=== PATIENT | male | born 1995 | race Caucasian/White ===

== ENCOUNTER 2016-10-13 20:51 | Inpatient (IN) | payer BC, OTHER ==
[~2016-10-13] VITALS: Ht 180.3 cm; Wt 61.2 kg
[~2016-10-13 20:51] MED LIST: DIPH50CA37 PO; Fluoxetine Hcl PO; Gabapentin PO; HYDR-3895 PO; MIRT15TA7 PO
--- NOTE | 2016-10-14 20:40 | NUR ---
Admission note Pt is a 21 yo male, A+Ox4, presenting to [facility] for ETOH/Benzo/Opiate/Methamphetamine/Marijuana dependence. Pt has NKA, is Full Code status, and on Regular diet. Pt is 5'11" in height and 135 LBS in weight. Pt has medical HX of Anxiety, Depression, ADHD, and Insomnia. Pt has family medical HX of Anemia from Mother. Pt has no Primary Care Provider. Pt has been drinking Alcohol for 5 years, has reached a level of 750ml Vodka/daily and last drink was 375ml on 10-14-16 @0300. Pt has been taking Xanax XR for 4 years, has reached a level of 8mg/daily, and last dose was 6mg on 10-13-16. Pt has been smoking Heroin for 2 years, has reached a level of $20-$40 worth/daily, and last dose was $20 worth on 10-11-16. Pt has been taking Adderall for 4 years, has reached a level of 60mg/daily, and last dose [id number] on 10-13-16. Pt has been snorting Methamphetamine for 4 years, has reached a level of 0.5gm/week, and last dose was of an "unknown" amount on 10-07-16. Pt has been smoking Marijuana for 6 years, has reached a level of 1gm/daily, and last dose was 1gm on 10-14-16 @0900. Pt states that he is taking home medications as follows: Fluoxetine 40mg QD, Adderall 30mg BID, Xanax XR 2mg BID, and Restoril 30mg QHS. Pt has HX of previous Detox/Rehab for 7 days @ [facility] and then 30 days @ [facility] in July 2016. this was the patients last time sober. Pt is a cigarette smoker for 5 years and has reached a rate of 20/daily. Pt is stable at this time with V/S WNL. No s/s of distress noted at this time. Respirations even and unlabored. Will continue to monitor.
[2016-10-14 20:45] VITALS: BP 128/74
[2016-10-14 21:08] LABS: *AMPHETAMINE, URINE NEGATIVE (NEGATIVE); *BARBITURATE, URINE NEGATIVE (NEGATIVE); *CANNABINOID, URINE POSITIVE (NEGATIVE); *COCCAINE, URINE NEGATIVE (NEGATIVE); *OPIATE, URINE NEGATIVE (NEGATIVE); *PHENCYCLIDINE SCREEN,URINE NEGATIVE (NEGATIVE)
[2016-10-15 00:11] VITALS: BP 117/54
[2016-10-15] MEDS ORDERED: IBUPROFEN 400 MG TABLET PO PRN (00:15)
[2016-10-15] MEDS ORDERED: THIAMINE HCL 200 MG/2 ML VIAL IM ONE (00:15)
[2016-10-15] MEDS ORDERED: LORAZEPAM 1 MG TABLET PO PRN ×2 (00:15)
[2016-10-15] MEDS ORDERED: MAG HYDROX/AL HYDROX/SIMETH 30 ML LIQUID UDC PO PRN (00:15)
[2016-10-15] MEDS ORDERED: ONDANSETRON ODT 4 MG TAB.RAPDIS SL PRN (00:15)
[2016-10-15] MEDS ORDERED: BUPRENORPHINE HCL 2 MG TAB.SUBL SL PRN (00:15)
[2016-10-15] MEDS ORDERED: LOPERAMIDE HCL 2 MG CAPSULE PO PRN ×2 (00:15)
[2016-10-15] MEDS ORDERED: MAGNESIUM HYDROXIDE 30 ML LIQUID UDC PO PRN (00:15)
[2016-10-15] MEDS ORDERED: DICYCLOMINE HCL 20 MG TABLET PO PRN (00:15)
[2016-10-15] MEDS ORDERED: LORAZEPAM 2 MG/1 ML VIAL IM PRN (00:15)
[2016-10-15] MEDS ORDERED: diphenhydrAMINE 50 MG CAPSULE PO PRN (00:15)
[2016-10-15] MEDS ORDERED: METHOCARBAMOL 750 MG TABLET ONE (00:40)
[2016-10-15] MEDS ORDERED: diphenhydrAMINE 50 MG CAPSULE ONE (00:40)
[2016-10-15] MEDS: METHOCARBAMOL 750 MG TABLET PO PRN ×4 (00:43→21:53)
--- NOTE | 2016-10-15 00:48 | NUR ---
PRN Robaxin and Benadryl Pt c/o general body pain and inability to sleep and requested for PRN Robaxin and Benadryl. Medications given and tolerated well. Will reassess within 1 HR. Will continue to monitor.
[2016-10-15] MEDS ORDERED: ALPR2TAB5 PO (01:30)
[2016-10-15] MEDS ORDERED: TEMA30CA5 PO (01:34)
--- NOTE | 2016-10-15 01:35 | NUR ---
PRN Robaxin and Benadryl Reassessment Medications effective. No s/s of ASE/distress noted at this time. Respirations even and unlabored. Will continue to monitor.
[2016-10-15 01:44] LABS: BASOPHILS # (AUTO) 0.1 K/uL (0.0-0.2); EOSINOPHILS # (AUTO) 0.1 K/uL (0.0-0.7); EOSINOPHILS % (AUTO) 1.7 % (0.0-7.0); HEMATOCRIT 42.6 % (35.0-45.0); HEMOGLOBIN 13.9 g/dL (11.5-15.5); LYMPHOCYTES # (AUTO) 2.5 K/uL (0.8-4.8); LYMPHOCYTES % (AUTO) 29.1 % (20.5-74.5); MEAN CORPUSCULAR HEMOGLOBIN 27.9 uug (27.0-31.0); MEAN CORPUSCULAR HGB CONC 33 g/dL (32.0-37.0); MEAN CORPUSCULAR VOLUME 85.2 fL (77.0-95.0); MONOCYTES # (AUTO) 0.9 K/uL (0.1-1.30); MONOCYTES % (AUTO) 10.2 % (0-11); PLATELET COUNT (AUTO) 314 K/uL (150-450); RED CELL DISTRIBUTION WIDTH 12.6 % (11.5-14.5); WHITE BLOOD COUNT (AUTO) 8.6 K/uL (4.5-14.5)
[2016-10-15 01:54] LABS: ETHANOL < 3 MG/DL (0-0)
[2016-10-15 02:05] LABS: ALANINE AMINOTRANSFERASE 34 U/L (16-63); ALBUMIN 3.8 g/dL (3.4-5.0); ALKALINE PHOSPHATASE 59 U/L (50-136); AMYLASE 48 U/L (25-115); ASPARTATE AMINOTRANSFERASE 19 U/L (15-37); BILIRUBIN,TOTAL 0.4 mg/dL (0.2-1.0); CALCIUM 8.8 mg/dL (8.5-10.1); CARBON DIOXIDE 31 mmol/L (21-32); CHLORIDE 102 mmol/L (98-107); GFR 95 mL/min (>60); GLUCOSE 103 mg/dL (74-106); LIPASE 179 U/L (73-393); MAGNESIUM 1.9 mg/dL (1.8-2.4); POTASSIUM 4.1 mmol/L (3.5-5.1); SODIUM SERUM 139 mmol/L (136-145); TOTAL PROTEIN, SERUM 6.8 g/dL (6.4-8.2); UREA NITROGEN, BLOOD 13 mg/dL (7-18)
[2016-10-15 02:06] LABS: THYROID STIMULATING HORMONE 2.008 mIU/mL (0.358-3.740)
[2016-10-15 02:10] LABS: HIV-1/2 ANTIBODY NON REACTIVE (NONREACTIVE)
[2016-10-15 02:11] LABS: HIV-1 p24 ANTIGEN NON REACTIVE (NONREACTIVE)
--- NOTE | 2016-10-15 04:14 | NUR ---
V/S, COWS, and CIWA Refused V/S, COWS, and CIWA Refused. No s/s of distress noted at this time. Respirations even and unlabored. Will continue to monitor.
--- NOTE | 2016-10-15 06:46 | NUR ---
End of shift note Pt is a 21 yo male, A+Ox4, presenting to [facility] for ETOH/Benzo/Opiate/Methamphetamine/Marijuana dependence. Pt has NKA, is Full Code status, and on Regular diet. Pt is 5'11" in height and 135 LBS in weight. Pt has medical HX of Anxiety, Depression, ADHD, and Insomnia. Pt has family medical HX of Anemia from Mother. Pt has no Primary Care Provider. Pt has been drinking Alcohol for 5 years, has reached a level of 750ml Vodka/daily and last drink was 375ml on 10-14-16 @0300. Pt has been taking Xanax XR for 4 years, has reached a level of 8mg/daily, and last dose was 6mg on 10-13-16. Pt has been smoking Heroin for 2 years, has reached a level of $20-$40 worth/daily, and last dose was $20 worth on 10-11-16. Pt has been taking Adderall for 4 years, has reached a level of 60mg/daily, and last dose [id number] on 10-13-16. Pt has been snorting Methamphetamine for 4 years, has reached a level of 0.5gm/week, and last dose was of an "unknown" amount on 10-07-16. Pt has been smoking Marijuana for 6 years, has reached a level of 1gm/daily, and last dose was 1gm on 10-14-16 @0900. Pt states that he is taking home medications as follows: Fluoxetine 40mg QD, Adderall 30mg BID, Xanax XR 2mg BID, and Restoril 30mg QHS. Pt has HX of previous Detox/Rehab for 7 days @ [facility] and then 30 days @ [facility] in July 2016. this was the patients last time sober. Pt is a cigarette smoker for 5 years and has reached a rate of 20/daily. Pt was given PRN Robaxin and Benadryl @0048. Pt slept for a total of 6 HRS. Last COWS: 5 and Last CIWA: 3 @0000. No s/s of distress noted at this time. Respirations even and unlabored. Will endorse to day shift nurse.
--- NOTE | 2016-10-15 07:00 | NUR ---
Start of Shift Notes: Received patient in his room. Awake, alert, verbally responsive x 4. Appears anxious. Redirectable. Able to make his needs known. Respirations even and unlabored. No SOB noted. Skin warm and dry to touch. Abdomen soft and non-distended with (+) BS in all 4 quadrants noted. No complains of N/V/D or constipation noted. No complains of abdominal discomfort. Bladder non-distended. No complains of dysuria noted. Voids independently. Ambulatory ad shannon with steady gait. Patient is a 21 year old male admitted for opiate/BZO/ETOH/methamphetamine dependence who was placed on PRNs only at this time. MD to re-assess taper need in AM. Has past medical hx of anxiety, depression, ADHD, insomnia, and seizure withdrawal. NKA. FULL CODE. Regular diet. On fall and seizure precautions. Educated patient on his current plan of care for the day and his medication regimen. Encouraged oral fluid intake and encouraged group participation to learn new skills to prevent relapse.
[2016-10-15 08:00] VITALS: BP 125/80
[2016-10-15] MEDS: MULTIVITAMINS,THERAPEUTIC TABLET PO SCH (08:50)
[2016-10-15] MEDS: FOLIC ACID 1 MG TABLET PO SCH (08:50)
[2016-10-15] MEDS: THIAMINE HCL 100 MG TABLET PO SCH (08:51)
[2016-10-15] MEDS: HYDROXYZINE PAMOATE 25 MG CAPSULE PO PRN (08:51)
--- NOTE | 2016-10-15 08:51 | NUR ---
PRN Robaxin, Ativan 1 mg, Vistaril 50 mg PO given: COWS 10, CIWA 7 - patient presented with muscle aches, anxiety, agitation, sweats. Medicated patient with Robaxin 750 mg PO, Ativan 1 mg per CIWA score of 7 and Vistaril 50 mg PO for anxiety. Will monitor for effectiveness.
[2016-10-15] MEDS ORDERED: TUBERCULIN,PURIF.PROT.DERIV. 5 TU/0.1 ML TEST ID ONE (09:00)
[2016-10-15] MEDS ORDERED: LORAZEPAM 1 MG TABLET PO ONE (09:45)
--- NOTE | 2016-10-15 09:51 | NUR ---
Re-assessment: Per patient, PRN Vistaril, Robaxin, and Ativan 1 mg PO were effective in reducing anxiety, muscle aches. CIWA 6.
[2016-10-15] MEDS ORDERED: GABAPENTIN PO SCH (10:00)
[2016-10-15] MEDS: GABAPENTIN 400 MG CAPSULE PO SCH ×4 (10:06→20:22)
--- NOTE | 2016-10-15 10:06 | NUR ---
PRN Motrin 400 mg Po given: Patient noted to complain of headache 10/26. Medicated patient with Motrin 400 mg PO as ordered. Will monitor for effectiveness.
--- NOTE | 2016-10-15 11:06 | NUR ---
Re-assessment: Per patient, PRN Motrin was effective in relieving headache.
[2016-10-15] MEDS: BUPRENORPHINE HCL 2 MG TAB.SUBL SL SCH ×2 (11:53→20:23)
[2016-10-15 12:00] VITALS: BP 134/76
[2016-10-15] MEDS: LORAZEPAM 1 MG TABLET PO SCH ×3 (12:00→20:22)
[2016-10-15 16:00] VITALS: BP 115/79
--- NOTE | 2016-10-15 17:26 | NUR ---
Robaxin 750 mg PO given: Patient noted with complain of 6/10 muscle aches and pain. Non-pharmacological interventions were ineffective. Medicated patient with Robaxin 750 mg PO as ordered. Will monitor for effectiveness.
--- NOTE | 2016-10-15 18:26 | NUR ---
Re-assessment: Per patient, PRN Robaxin was effective in reducing muscle aches and pains.
--- NOTE | 2016-10-15 18:38 | NUR ---
End of Shift Notes: Patient is a 21 year old male admitted on 10/14/2016 for ETOH/BZO/opiate/methamphetamine dependence who was placed on a 5-day Ativan and 3-day Subutex taper as ordered. No adverse reactions noted. 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 NKA. FULL CODE. Regular diet. On fall and seizure precautions. VS monitored closely q 4 hours. No significant abnormalities noted. Initial COWS 10, CIWA 7. Patient presented with chills, hot flashes, restlessness, anxiey, agitation, muslce aches, and agitation. Patient was medicated with Robaxin 750, Ativan 1 mg and Vistaril at 0851 with help after 1 hour. Motrin 400 mg PO was given at 1006 for headache with help after 1 hour. Last COWS 10 /CIWA 5.Unable to participate in group and therapy sessions due to his withdrawal symptoms. All needs met and attended. Safety precautions in place. Will contnue to monitor closely.
--- NOTE | 2016-10-15 19:14 | NUR ---
Start of shift note Received report from day shift nurse. Pt is a 21 yo male, A+Ox4, presenting to [facility] for ETOH/Benzo/Opiate/Methamphetamine/Marijuana dependence. Pt has NKA, is Full Code status, and on Regular diet. Pt has medical HX of Anxiety, Depression, ADHD, and Insomnia. Pt is on Fall and Seizure precautions. Pt is on 5 day Ativan and 3 day Subutex tapers, tolerated well. No s/s of distress noted at this time. Respirations even and unlabored. Will continue to monitor.
[2016-10-15 20:30] VITALS: BP 119/62
[2016-10-15] MEDS: MIRTAZAPINE 15 MG TABLET PO SCH (21:53)
--- NOTE | 2016-10-15 21:53 | NUR ---
PRN Robaxin Pt c/o general body pain and requested for PRN Robaxin. Medication given and tolerated well. Will reassess within 1 HR. Will continue to monitor.
[2016-10-15] MEDS ORDERED: MIRTAZAPINE 15 MG TABLET ONE (21:59)
--- NOTE | 2016-10-15 22:50 | NUR ---
PRN Robaxin Reassessment Medication effective. No s/s of ASE/distress noted at this time. Respirations even and unlabored. Will continue to monitor.
--- NOTE | 2016-10-16 00:13 | NUR ---
V/S, COWS, and CIWA Refused V/S, COWS, and CIWA Refused. No s/s of distress noted at this time. Respirations even and unlabored. Will continue to monitor.
--- NOTE | 2016-10-16 04:14 | NUR ---
V/S, COWS, and CIWA Refused V/S, COWS, and CIWA Refused. No s/s of distress noted at this time. Respirations even and unlabored. Will continue to monitor.
[2016-10-16] MEDS: HYDROXYZINE PAMOATE 25 MG CAPSULE PO PRN ×2 (05:27→19:03)
--- NOTE | 2016-10-16 05:30 | NUR ---
PRN Vistaril Pt c/o anxiety and requested for PRN Vistaril. Medication given and tolerated well. Will reassess within 1 HR. Will continue to monitor.
--- NOTE | 2016-10-16 06:20 | NUR ---
PRN Vistaril Reassessment Medication effective. No s/s of ASE/distress noted at this time. Respirations even and unlabored. Will continue to monitor.
--- NOTE | 2016-10-16 06:52 | NUR ---
End of shift note Pt is a 21 yo male, A+Ox4, presenting to [facility] for ETOH/Benzo/Opiate/Methamphetamine/Marijuana dependence. Pt has NKA, is Full Code status, and on Regular diet. Pt has medical HX of Anxiety, Depression, ADHD, and Insomnia. Pt is on Fall and Seizure precautions. Pt is on 5 day Ativan and 3 day Subutex tapers, tolerated well. Pt was given PRN Robaxin @4263 and PRN Vistaril @0530. Pt slept for a total of 8 HRS. Last COWS: 7 and Last CIWA: 4 @1999. No s/s of distress noted at this time. Respirations even and unlabored. Will endorse to day shift nurse.
--- NOTE | 2016-10-16 07:30 | NUR ---
START OF SHIFT Received client in his room. Awake, alert, verbally responsive x 4. Appears anxious, relaxation breathing techniques instituted with returned demonstration. Respirations even and unlabored. Skin warm and dry to touch. Abdomen soft and non-distended with (+) BS in all 4 quadrants noted. He denies N/V/D. Ambulatory ad shannon with steady gait. Client is a 21 year old male admitted for opiate/BZO/ETOH/methamphetamine withdrawal. He is on % day Ativan taper and 3 day Subutex, tolerating well. He reports past medical hx of SAVANNA, panic attacks, ADHD, insomnia, and induced-seizure withdrawal. NKA. FULL CODE. Regular diet. On fall and seizure precautions. Educated client on his current plan of care for the day and his medication regimen. Encouraged oral fluid intake and encouraged group participation to learn new skills to prevent relapse. Bed in lowest position and locked, side rails x 2 up/padded. Call light within reach.
[2016-10-16] MEDS: GABAPENTIN 400 MG CAPSULE PO SCH ×4 (08:02→20:43)
[2016-10-16] MEDS: LORAZEPAM 1 MG TABLET PO SCH ×3 (08:02→20:43)
[2016-10-16] MEDS: THIAMINE HCL 100 MG TABLET PO SCH (08:03)
[2016-10-16] MEDS: FOLIC ACID 1 MG TABLET PO SCH (08:03)
[2016-10-16] MEDS: MULTIVITAMINS,THERAPEUTIC TABLET PO SCH (08:03)
[2016-10-16] MEDS: BUPRENORPHINE HCL 2 MG TAB.SUBL SL SCH ×3 (08:03→20:43)
[2016-10-16 08:07] VITALS: BP 136/76
[2016-10-16] MEDS ORDERED: FLUOXETINE HCL 20 MG CAPSULE PO SCH (09:00)
[2016-10-16] MEDS ORDERED: [UNRECOGNIZED DRUG - OTHER] PO SCH (09:00)
--- NOTE | 2016-10-16 09:04 | NUR ---
prn vistaril 50mg, clonodine 0.1mg give for anxiety mb increased P 102, restlessness, call light within reach, will endorse to incoming nurse.
[2016-10-16] MEDS: CLONIDINE HCL 0.1 MG TABLET PO PRN ×2 (10:24→19:05)
--- NOTE | 2016-10-16 10:24 | NUR ---
PRN CLONIDINE Clonidine 0.1mg PO administered for anxiety, manifested by increased BP 156/90, P 106. Will continue to monitor. Breathing relaxation technique instituted, returned demonstration by client. Call light within reach.
[2016-10-16] MEDS ORDERED: HYDROXYZINE PAMOATE 25 MG CAPSULE PO ONE (11:00)
[2016-10-16 11:07] LABS: HEPATITIS B CORE AB, IgM Negative (Negative); HEPATITIS B SURFACE AG Negative (Negative)
--- NOTE | 2016-10-16 11:16 | NUR ---
ONE TIME VISTARIL Client is anxious manifested by inability to sit, sweaty hands, open and closing fist, P 100. Will continue to monitor. Call light within reach.
--- NOTE | 2016-10-16 11:24 | NUR ---
REASSESSMENT PRN CLONIDINE Client is anxious manifested by inability to sit, sweaty hands, open and closing fist, BP 147/82, P100. Will continue to monitor. Call light within reach.
[2016-10-16 12:00] VITALS: BP 140/88
--- NOTE | 2016-10-16 12:16 | NUR ---
REASSESSMENT ONE TIME VISTARIL Client appears less anxious, he is in bed, listening to music, P 86. Will continue to monitor. Call light within reach.
[2016-10-16] MEDS: VENLAFAXINE XR 150 MG CAP.SR.24H PO SCH (13:37)
--- NOTE | 2016-10-16 14:33 | NUR ---
Nursing notes Client was trying to cheek medication, Ativan 2 mg, primary nurse educated client on continuity of taper as prescribed time and route, he verbalized understanding and took his medications as ordered. Charge nurse, RUBINA and MD Gan notified. Will continue to monitor client. Call light within reach.
[2016-10-16 16:25] VITALS: BP 138/71
--- NOTE | 2016-10-16 16:32 | NUR ---
MD NOTIFICATION Dr. King made aware of client's visual hallucinations, he stated, "There is gas coming out of the ventilation system." client is alert and oriented x 4, client was redirected. Client grab his belongings and move to an empty bedroom, trying to scape the gas in his room. Vitals WNL's. No new orders at this time.
--- NOTE | 2016-10-16 19:32 | NUR ---
END OF SHIFT Client is a 21 year old male admitted on 10/14/2016 for ETOH/BZO/opiate/methamphetamine withdrawal, he is placed on a 5-day Ativan and 3-day Subutex taper tolerating well. He reports past medical hx of SAVANNA, panic attacks, ADHD, insomnia, and induced-seizure withdrawal. NKA. Full Code. Regular diet. On fall and seizure precautions. Last COWS 6, CIWA 8 d/t visual hallutinations, MD King made aware. Client denies any hallutinations at this time. Client was moved from room 317 to room 308. PRN Clonidine for anxiety, not effective. One time dose Vistaril 50mg for anxiety, noted effective. Unable to participate in group and therapy sessions due to his withdrawal symptoms. All needs met and attended. Safety precautions in place. Will continue to monitor closely.
--- NOTE | 2016-10-16 19:33 | NUR ---
Start of shift note Received report from day shift nurse. Pt is a 21 yo male, A+Ox4, presenting to [facility] for ETOH/Benzo/Opiate/Methamphetamine/Marijuana dependence. Pt has NKA, is Full Code status, and on Regular diet. Pt has medical HX of Anxiety, Depression, ADHD, and Insomnia. Pt is on Fall and Seizure precautions. Pt is on 5 day Ativan and 3 day Subutex tapers, tolerated well. No s/s of distress noted at this time. Respirations even and unlabored. Will continue to monitor.
[2016-10-16 20:38] VITALS: BP 127/84
[2016-10-16] MEDS: MIRTAZAPINE 15 MG TABLET PO SCH (20:43)
--- NOTE | 2016-10-17 00:07 | NUR ---
V/S, COWS, and CIWA Refused V/S, COWS, and CIWA Refused. No s/s of distress noted at this time. Respirations even and unlabored. Will continue to monitor.
--- NOTE | 2016-10-17 04:30 | NUR ---
V/S, COWS, and CIWA Refused V/S, COWS, and CIWA Refused. No s/s of distress noted at this time. Respirations even and unlabored. Will continue to monitor.
[2016-10-17] MEDS: ACETAMINOPHEN 325 MG TABLET PO PRN ×2 (06:18→21:46)
--- NOTE | 2016-10-17 06:21 | NUR ---
PRN Tylenol Pt c/o general body pain and requested for PRN Tylenol. Medication given and tolerated well. Will reassess within 1 HR. Will continue to monitor.
--- NOTE | 2016-10-17 07:02 | NUR ---
PRN Tylenol Reassessment Medication effective. No s/s of ASE/distress noted at this time. Respirations even and unlabored. Will continue to monitor.
--- NOTE | 2016-10-17 07:06 | NUR ---
End of shift note Pt is a 21 yo male, A+Ox4, presenting to [facility] for ETOH/Benzo/Opiate/Methamphetamine/Marijuana dependence. Pt has NKA, is Full Code status, and on Regular diet. Pt has medical HX of Anxiety, Depression, ADHD, and Insomnia. Pt is on Fall and Seizure precautions. Pt is on 5 day Ativan and 3 day Subutex tapers, tolerated well. Pt was given PRN Tylenol @0621. Pt slept for a total of 5 HRS. Last COWS: 6 and Last CIWA: 5 @2000. No s/s of distress noted at this time. Respirations even and unlabored. Will endorse to day shift nurse.
--- NOTE | 2016-10-17 07:35 | NUR ---
START OF SHIFT Received client in his room. Awake, alert, verbally responsive x 4. He appears anxious, demonstrated relaxation breathing techniques, reinforcement needed. Skin warm and dry to touch. Abdomen soft and non-distended. He denies N/V/D. He is ambulatory without assistance. Client is a 21 year old male admitted for opiate/BZO/ETOH/methamphetamine withdrawal. He is on 5 day Ativan taper and 3 day Subutex, tolerating well. He reports past medical hx of SAVANNA, panic attacks, ADHD, insomnia, and induced-seizure withdrawal. NKA. FULL CODE. Regular diet. PRN Tylenol, noted effective. LAST COWS 6/CIWA 5, he slept 5 hrs. On fall and seizure precautions. Educated client on his current plan of care for the day and his medication regimen. Encouraged oral fluid intake and encouraged group participation to learn new skills to prevent relapse. Bed in lowest position and locked, side rails x 2 up/padded. Call light within reach.
[2016-10-17 08:00] VITALS: BP 130/73
[2016-10-17] MEDS: LORAZEPAM 1 MG TABLET PO SCH ×4 (08:26→20:14)
[2016-10-17] MEDS: GABAPENTIN 400 MG CAPSULE PO SCH ×4 (08:26→20:15)
[2016-10-17] MEDS: THIAMINE HCL 100 MG TABLET PO SCH (08:26)
[2016-10-17] MEDS: MULTIVITAMINS,THERAPEUTIC TABLET PO SCH (08:26)
[2016-10-17] MEDS: FOLIC ACID 1 MG TABLET PO SCH (08:26)
[2016-10-17] MEDS: NEOMY/BACITRAC/POLYMI OINT 28.35 GM TUBE TOP SCH ×2 (08:27→16:18)
[2016-10-17] MEDS: VENLAFAXINE XR 150 MG CAP.SR.24H PO SCH (08:30)
[2016-10-17] MEDS ORDERED: BUPRENORPHINE HCL 2 MG TAB.SUBL SL SCH (09:00)
--- NOTE | 2016-10-17 09:00 | NUR ---
ZERO INDURATION AT RIGHT FOREARM TB SITE NOTED.
[2016-10-17 12:00] VITALS: BP 150/88
--- NOTE | 2016-10-17 13:00 | NUR ---
client is on room confinement per administrative derision, client has been told repeatedly by nursing staff, cable maker, GARCIA and MD Tafoya to not go inside another client's room and he fails to follow through with his understanding of not been allowed into other clients room. He is allowed for a cigarette smoke q3h if desired. Client verbalizes understanding, the door to his room is wide open and primary nurse is sitting outside his room and call light is within reach if client has any needs.
--- NOTE | 2016-10-17 15:00 | NUR ---
client complains of constipation, MD Gan made aware will follow up with any new order.
[2016-10-17] MEDS ORDERED: MAGNESIUM CITRATE 296 ML BOTTLE PO ONE (15:30)
[2016-10-17 16:25] VITALS: BP 133/84
--- NOTE | 2016-10-17 18:36 | NUR ---
END OF SHIFT Client is a 21 year old male admitted on 10/14/2016 for ETOH/BZO/opiate/methamphetamine withdrawal, he is placed on a 5-day Ativan, he completed 3-day Subutex taper tolerated well. He reports past medical hx of SAVANNA, panic attacks, ADHD, insomnia, and induced-seizure withdrawal. NKA. Full Code. Regular diet. On fall and seizure precautions. Last COWS 4, CIWA 4 @ 1600. Citrate of magnesium Po given for constipation, no BM reported yet. Client is in room confinement per administration orders, he is able to join group activity and gets patio privilege Q3h if desired, client verbalized understanding. He participated in 2/3 of group and therapy session. Adequate fluid intake. All needs met and attended. Safety precautions in place. Will continue to monitor closely.
[2016-10-17 20:00] VITALS: BP 139/77
--- NOTE | 2016-10-17 20:00 | NUR ---
1999 Patient received awake, alert and standing in his doorway. Patient returns nurse's greeting with, " Hi, I'm doing okay. I want to go have a cigarette". Patient's color is pink and his skin is warm, very slightly moist and intact, Various red irregular areas of different sizes noted on patient's left cheek/chin area. Patient states that he picks these areas with his fingers at times. Patient's lung sounds are clear bilaterally and active bowel sounds are noted X 4 abdominal Quads, per auscultation. Patient states that he is eating and taking fluids ad shannon and 'trying to do everything that I have to, I guess'. Patient denies any pain or other discomforts at this time. Vital signs are: 98.2-110-18 139/77, O2 Sat 98%, COWS 6, CIWA 5. Patient is presently on room restriction due to his reportedly going into unauthorized areas numerous times earlier today and patient is made aware of this status. Patient was admitted on 10/14/16 for: Alcohol, Xanax, heroin, Adderall, Methamphetamine and Marijuana withdrawal and he has been on D.O Subutex medication and Ativan medication tapers, which he has apparently been tolerating well. Patient's overall mood/affect is guarded, suspicious and he is minimally cooperative with redirection and prompting at this time. Will continue to monitor. Bed is locked and in lowest position, bed rails are up X 1 and call light within patient's easy reach.
[2016-10-17] MEDS: MIRTAZAPINE 15 MG TABLET PO SCH (20:15)
[2016-10-17] MEDS: METHOCARBAMOL 750 MG TABLET PO PRN (21:46)
[2016-10-17] MEDS: CLONIDINE HCL 0.1 MG TABLET PO PRN (21:46)
--- NOTE | 2016-10-17 21:46 | NUR ---
PRN MEDICATIONS: Prn Tylenol 650 mg p.o. given per patient's c/o headache, 6/10 pain scale, Prn Catapres 0.1 mg p.o given per patient's request for his c/o increasing anxiety, agitation and restlessness, Prn Robaxin 750 mg p.o. given per patient's request for his c/o generalized body aches and muscle spasms, 7/10 pain scale.
[2016-10-17] MEDS: HYDROXYZINE PAMOATE 25 MG CAPSULE PO PRN (21:47)
--- NOTE | 2016-10-17 21:47 | NUR ---
PRN MEDICATION: Prn Vistaril 50 mg p.o. given per patient's c/o increasing anxiety and restlessness.
--- NOTE | 2016-10-17 22:47 | NUR ---
REASSESSMENT PRN MEDICATIONS: Patient is resting quietly with eyes closed, respirations regular, unlabored at 14.
[2016-10-18] VITALS: BP 126/76
--- NOTE | 2016-10-18 00:38 | NUR ---
PRN MEDICATION: One-Time dose of Benadryl 50 mg p.o. given per patient's request for sleep medication.
[2016-10-18] MEDS ORDERED: diphenhydrAMINE 50 MG CAPSULE ONE (00:44)
[2016-10-18] MEDS ORDERED: diphenhydrAMINE 50 MG CAPSULE PO ONE (00:45)
--- NOTE | 2016-10-18 01:38 | NUR ---
REASSESSMENT ONCE DOSE: Patient is awake and has to be frequently be redirected by nurse and other floor staff, not to roam hallways and to stay in his room. Patient is only fairly cooperative with redirection and must be monitored closely as he continually leaves his room to walk elsewhere and is 'fridgety' overall.
--- NOTE | 2016-10-18 04:00 | NUR ---
Patient refused V/S, COWS, CIWA to be done at this time.
--- NOTE | 2016-10-18 06:30 | NUR ---
0630 Patient slept a total of of 4 hours and he had 3 voids and no stools.Total intake was 1,591 ml p.o. Prn medications given noted separately per floor protocol. V/SS afebrile, COWS 6, CIWA 5. Patient was up most of the night, roaming the halls, constantly wanting to go downstairs to smoke and almost constantly asking when and what can he get as far as medication is concerned, Patient is mostly non-compliant with his room restriction, so he was placed on 1 to 1 staff in his room. Patient overall is non-cooperative, manipulative with staff and drug-seeking for the most part. Redirection to appropriate behavior is frequent and only minimally successful. Patient is presently awake and talking with 1 to 1 [facility] staff in his room. Patient is in obvious distress or discomfort at this time.
--- NOTE | 2016-10-18 07:55 | NUR ---
START OF SHIFT NOTE Received report from night nurse, 21 year old male, admitted for ETOH/Benzo/Opiate/Methamphetamine/Marijuana dependence. NKA, Full Code status, and on Regular diet, Fall and Seizure precautions. Pt reported PMH of Anxiety, Depression, ADHD, and Insomnia. Pt cont with 5 day Ativan and completed his 3 day Subutex tapers, tolerated well. Per night nurse pt is non complaint with room restrictions, medications, and up most of the night,Pt is alert awake oriented x4, No s/s of distress noted at this time. Respirations even and unlabored. safety measures in place, call light within reach. Will continue to monitor and provide hazard free environment.
[2016-10-18 08:00] VITALS: BP 145/94
[2016-10-18] MEDS: THIAMINE HCL 100 MG TABLET PO SCH (08:12)
[2016-10-18] MEDS: MULTIVITAMINS,THERAPEUTIC TABLET PO SCH (08:12)
[2016-10-18] MEDS: FOLIC ACID 1 MG TABLET PO SCH (08:12)
[2016-10-18] MEDS: VENLAFAXINE XR 150 MG CAP.SR.24H PO SCH (08:13)
[2016-10-18] MEDS: NEOMY/BACITRAC/POLYMI OINT 28.35 GM TUBE TOP SCH (08:13)
[2016-10-18] MEDS: GABAPENTIN 400 MG CAPSULE PO SCH (08:31)
--- NOTE | 2016-10-18 08:46 | NUR ---
AMA NOTE Pt left AMA, pt refused to comply with treatment. Pt was educated about the risks and consequences of leaving AMA, Pt verbalized understanding but was adamant about leaving. Multiple staff members including, pt advocates and nurses attempted to reason with pt without any success. vital signs stable. Skin intact, pt denied any SI/HI ideations. Pt Psychiatrist and Malik Latif were notified and aware. Pt was given a list of community resources, AMA forms explained and signed. All belongings returned to pt including medications. pt left facility AMA on 10/18/16 at 0846. Addendum: 10/18/16 at 1240 by SUSANNE PALOMINO LVN was notified at 11:30.
[2016-10-18] MEDS ORDERED: LORAZEPAM 1 MG TABLET PO SCH (09:00)
[2016-10-19] MEDS ORDERED: LORAZEPAM 1 MG TABLET PO SCH (09:00)
== END 2016-10-18 08:46 | disposition left against medical advice (07) | DRG 894 ==
LOC: SRC 10-14 19:40
PROVIDERS: ADMIT Internal Medicine; ATTEND Internal Medicine
PROC: HZ2ZZZZ Detoxification Services for Substance Abuse Treatment (ICD-10-PCS; principal; 2016-10-14)
PROC: HZ31ZZZ Individual Counseling for Substance Abuse Treatment, Behavioral (ICD-10-PCS; 2016-10-15)
PROC: HZ41ZZZ Group Counseling for Substance Abuse Treatment, Behavioral (ICD-10-PCS; 2016-10-16)
DX: F10.230 Alcohol dependence with withdrawal, uncomplicated (principal); F33.2 Major depressive disorder, recurrent severe without psychotic features; F13.230 Sedative, hypnotic or anxiolytic dependence with withdrawal, uncomplicated; Y90.9 Presence of alcohol in blood, level not specified; F11.23 Opioid dependence with withdrawal; Z59.0 Homelessness; G47.00 Insomnia, unspecified; F41.0 Panic disorder [episodic paroxysmal anxiety]; F90.9 Attention-deficit hyperactivity disorder, unspecified type; Z79.899 Other long term (current) drug therapy; Z76.5 Malingerer [conscious simulation]
CPT/HCPCS: 36415; 70030-TC; 80307; 80346; 80349; 83690; 83735; 84443; 85025; 86580; 86705; 87340; 87806; A4663; G6040-TC; J3411; Q0163

== ENCOUNTER 2017-05-16 14:30 | Inpatient (IN) | payer BC, OTHER ==
[~2017-05-16] VITALS: Ht 180.3 cm; Wt 56.7 kg
[~2017-05-16 14:30] MED LIST changes: +ALPR2TAB5 PO; +TEMA30CA5 PO
--- NOTE | 2017-05-16 16:00 | NUR ---
INTAKE ASSESSMENT Received patient in intake. He is AOX4, stable, and ambulatory with steady gait. Vital signs WNL. Patient reports NKA. Explained unit protocols and patient verbalized understanding. Will admit patient upon admission to third floor.
[2017-05-16 16:10] VITALS: BP 132/78
--- NOTE | 2017-05-16 16:10 | NUR ---
ADMISSION NOTE Allergy- NKA/NKFA Status-Full code Height 5'11 Weight-125 lb PCP-NONE Vital Signs- B/P-132/78,HR-102, R-16, TEMP-98.2, SPO2-95%, Pain 0/10 CIWA-4 Patient is a 22 year old male admitted to [facility] to detox center for ETOH/BENZO dependence under the care of Dr. Gan. Urine provided by patient for urine screen and thorough body and belonging check done by DISPLAY ASSOCIATE. Patient appears anxious and agitated, crying. Patient is cooperative during nursing assessment. Upon admission Patient is noted to be flat, intoxicated,but cooperative with admission. Patient denies chest pain or SOB. Lung sounds clear with no cough noted. Bowel sounds present in all 4 quadrants. BUE and BLE noted WNL with no edema present. Skin check done with no significant findings. Pt reported PMH of Anxiety, Depression, insomnia. Patient reported taking Effexor 150mg PO daily for depression and Restoril 30mg PO daily QHS. Patient did not bring any medications from home. Patient refused FLU/PNA vaccine. Patient denies SI/HI ideations. Pt AOx4. Patient reported time in treatment. Patient reports of 1 months of sobriety from January 2017 to February 2017. Pt reported s/s of withdrawal as anxiety, agitation,Tremors. Pt reported Substance abuse history as: ETOH(WHISKEY)-Pt reported drinking daily for past 1 month 1 pint Po daily, last used was 05/16/17, 3 beers Po at 1200. XANAX-Pt reported taking Xanax daily for past 1 month 6mg PO daily and last used was 05/16/17, 4mg Po at 1400. Educated patient regarding unit policies and protocols, patient verbalized understanding. Patient oriented to unit by DISPLAY ASSOCIATE. Fall and seizure precautions in place. Safety measures in place, Call light within reach. Will cont to monitor.
[2017-05-16 16:22] LABS: *AMPHETAMINE, URINE NEGATIVE (NEGATIVE); *BARBITURATE, URINE NEGATIVE (NEGATIVE); *CANNABINOID, URINE NEGATIVE (NEGATIVE); *COCCAINE, URINE NEGATIVE (NEGATIVE); *OPIATE, URINE NEGATIVE (NEGATIVE); *PHENCYCLIDINE SCREEN,URINE NEGATIVE (NEGATIVE)
[2017-05-16] MEDS ORDERED: VENL150C2 PO (18:00)
[2017-05-16] MEDS ORDERED: TEMA30CA5 PO (18:00)
[2017-05-16] MEDS ORDERED: THIAMINE HCL 200 MG/2 ML VIAL IM ONE (19:00)
[2017-05-16] MEDS ORDERED: LORAZEPAM 2 MG/1 ML VIAL IM PRN (19:00)
[2017-05-16] MEDS ORDERED: DICYCLOMINE HCL 20 MG TABLET PO PRN (19:00)
[2017-05-16] MEDS ORDERED: ONDANSETRON ODT 4 MG TAB.RAPDIS SL PRN (19:00)
[2017-05-16] MEDS ORDERED: LORAZEPAM 1 MG TABLET PO PRN (19:00)
[2017-05-16] MEDS ORDERED: LOPERAMIDE HCL 2 MG CAPSULE PO PRN ×2 (19:00)
[2017-05-16] MEDS ORDERED: MAGNESIUM HYDROXIDE 30 ML LIQUID UDC PO PRN (19:00)
[2017-05-16] MEDS ORDERED: MIRALAX 17 GM POWD.PACK PO PRN (19:00)
[2017-05-16] MEDS ORDERED: MAG HYDROX/AL HYDROX/SIMETH 30 ML LIQUID UDC PO PRN (19:00)
[2017-05-16] MEDS ORDERED: ACETAMINOPHEN 325 MG TABLET PO PRN (19:00)
[2017-05-16] MEDS ORDERED: ONDANSETRON 4 MG/2 ML VIAL IM PRN (19:00)
--- NOTE | 2017-05-16 19:17 | NUR ---
END OF SHIFT NOTE Patient newly admitted at 1610 for ETOH/BENZO dependence. Pt compliant with medication and plan of care. Pt Encouraged Po fluids as tolerated. Pt's last CIWA-4 upon admission. Vital signs WNL. All needs met. Safety measures in place, call light within reach. Pt endorsed to night nurse in stable condition.
--- NOTE | 2017-05-16 19:30 | NUR ---
START OF SHIFT PATIENT IS A 22 YEAR OLD MALE ADMITTED TO [facility] ON 05-16-17 FOR ETOH/BENZO DEPENDENCE. HE REPORTS LAST DRINK THIS AM 3 BEERS. HE REPORTS LAST USING XANAX THIS AM USING 4MG. PATIENT IS A FULL CODE ON A REGULAR DIET WITH NKA. HE IS ON FALL AND SEIZURE PRECAUTIONS. PAST PSYCH HISTORY OF ANXIETY, DEPRESSION, AND INSOMNIA. HE IS BEING PLACED ON ATIVAN TAPER TO START TOMORROW. HE CURRENTLY HAS PRN ATIVAN ORDERED FOR WITHDRAWAL SYMPTOMS BASED ON CIWA SCORE. LAST CIWA REPORTED TO BE A 4 AT 1600. SAFETY MEASURES IN PLACE, CALL LIGHT WITHIN REACH. REPORT RECEIVED FROM AM NURSE.
[2017-05-16 20:00] VITALS: BP 135/87
[2017-05-16] MEDS: diphenhydrAMINE 50 MG CAPSULE PO PRN (20:05)
[2017-05-16] MEDS: LORAZEPAM 1 MG TABLET PO PRN ×2 (20:05→23:02)
--- NOTE | 2017-05-16 20:05 | NUR ---
PRN medication Patient with CIWA 8 noted with fine tremors, anxiety, and restlessness. Ativan 1mg PO PRN administered with effect pending. Patient with complaints of difficulty sleeping. Benadryl 50 mg PO administered with effect pending.
[2017-05-16] MEDS ORDERED: THIAMINE HCL 200 MG/2 ML VIAL ONE (20:12)
[2017-05-16] MEDS ORDERED: LORAZEPAM 1 MG TABLET ONE ×2 (20:13→23:15)
[2017-05-16] MEDS ORDERED: diphenhydrAMINE 50 MG CAPSULE ONE (20:13)
--- NOTE | 2017-05-16 21:05 | NUR ---
reassessment of patient Patient reassessed one hour after administration of Ativan 1 mg PO given for CIWA 8. Patient reports feeling relaxed resting in bed. Ativan with noted effectiveness. CIWA 4. Patient reassessed one hour after Benadryl 50 mg PO given for sleeplessness. Patient feeling relaxed but not sleeping as of late.
[2017-05-16 23:00] VITALS: BP 118/78
--- NOTE | 2017-05-16 23:02 | NUR ---
PRN medication Patient with reports of feeling anxious, tremulousness, with noted restlessness. Ativan 1 mg PO administered for CIWA 8. Effect pending.
[2017-05-16 23:20] LABS: ALANINE AMINOTRANSFERASE 19 U/L (16-63); ALKALINE PHOSPHATASE 62 U/L (50-136); AMYLASE 69 U/L (25-115); ASPARTATE AMINOTRANSFERASE 12 U/L (15-37); BILIRUBIN,TOTAL 0.3 mg/dL (0.2-1.0); CARBON DIOXIDE 28 mmol/L (21-32); CHLORIDE 104 mmol/L (98-107); GLUCOSE 121 mg/dL (74-106); LIPASE 157 U/L (73-393); MAGNESIUM 1.9 mg/dL (1.8-2.4); POTASSIUM 3.6 mmol/L (3.5-5.1); TOTAL PROTEIN, SERUM 6.5 g/dL (6.4-8.2); UREA NITROGEN, BLOOD 9 mg/dL (7-18)
[2017-05-16 23:24] LABS: BASOPHILS % (AUTO) 0.5 % (0.0-2.0); EOSINOPHILS # (AUTO) 0.3 K/uL (0.0-0.7); EOSINOPHILS % (AUTO) 2.8 % (0.0-7.0); HEMATOCRIT 45.4 % (40-50); HEMOGLOBIN 15.2 G/DL (14.0-18.0); LYMPHOCYTES # (AUTO) 3.3 K/UL (0.8-4.8); LYMPHOCYTES % (AUTO) 34.5 % (20.5-51.5); MEAN CORPUSCULAR HEMOGLOBIN 28.9 UUG (27.0-31.0); MEAN CORPUSCULAR HGB CONC 33 g/dL (32.0-37.0); MEAN CORPUSCULAR VOLUME 86.5 FL (82.0-92.0); MONOCYTES # (AUTO) 0.7 K/UL (0.1-1.30); MONOCYTES % (AUTO) 7.9 % (0.0-11.0); NEUTROPHILS # (AUTO) 5.1 K/UL (1.8-8.9); NEUTROPHILS % (AUTO) 54.3 % (38.5-71.5); PLATELET COUNT (AUTO) 273 K/UL (150-450); RED BLOOD CELL COUNT(AUTO) 5.25 MIL/UL (4.7-6.1); WHITE BLOOD COUNT (AUTO) 9.4 K/UL (4.0-11.2)
[2017-05-16 23:45] LABS: ETHANOL < 3 MG/DL (0-0)
[2017-05-17 00:03] VITALS: BP 116/68
--- NOTE | 2017-05-17 00:07 | NUR ---
Reassessment of Patient Patient reassessed one hour after receiving Ativan 1 mg PO for CIWA 8. Patient vs 116/68, P 68, R 16, SPO2 99% on RA, T 98.3. Patient resting comfortably in bed eyes closed. Breathing even and unlabored. CIWA deferred for sleep. Ativan appears to have been effective.
[2017-05-17 04:00] VITALS: BP 107/65
--- NOTE | 2017-05-17 04:00 | NUR ---
CIWA deferred 0400 CIWA deferred for sleep
--- NOTE | 2017-05-17 06:46 | NUR ---
END OF SHIFT PATIENT IS A 22 YEAR OLD MALE ADMITTED TO [facility] ON 05-16-17 FOR ETOH/BENZO DEPENDENCE. HE REPORTS LAST DRINK THIS AM 3 BEERS. HE REPORTS LAST USING XANAX THIS AM USING 4MG. PATIENT IS A FULL CODE ON A REGULAR DIET WITH NKA. HE IS ON FALL AND SEIZURE PRECAUTIONS. PAST PSYCH HISTORY OF ANXIETY, DEPRESSION, AND INSOMNIA. HE IS BEING PLACED ON ATIVAN TAPER TO START TOMORROW. HE CURRENTLY HAS PRN ATIVAN ORDERED FOR WITHDRAWAL SYMPTOMS BASED ON CIWA SCORE VITAL SIGNS AT 1999 BP 135/87, P 71, R 18, SPO2 99% ON RA, T 98.3. CIWA 8. ATIVAN 1MG PO PRN ADMINISTERED WITH EFFECTIVENESS NOTED. AFTER ONE HOUR CIWA REDUCED TO A 4. PATIENT RECEIVED BENADRYL 50 MG PO PRN FOR SLEEPLESSNESS. WITH FAIR EFFECT NOTED. AT 2300 PATIENT WITH COMPLAINTS OF BENZO AND ALCOHOL WITHDRAWAL SYMPTOMS. CIWA 8. BP 118/78, P 84, R 18, SPO2 99% ON RA, T 98.3. ATIVAN 1MG PO ADMINISTERED AT 2302. PATIENT REASSESSED ONE HOUR AFTER RECEIVING ATIVAN 1 M VITAL SIGNS BP 116/68, P 68, R 16, SPO2 99% on RA, T 98.3. CIWA DEFERRED FOR SLEEP. VS at 0400 BP 107/65, P 51, R 12, T 98.0, SPO2 100%. CIWA DEFERRED FOR SLEEP. PATIENT SLEPT A TOTAL OF 7HOURS INTAKE 1182 ml OUTPUT 2 voids. SAFETY MEASURES IN PLACE, CALL LIGHT WITHIN REACH. REPORT GIVEN TO AM NURSE.
--- NOTE | 2017-05-17 07:50 | NUR ---
START OF SHIFT NOTE Received report from night nurse,22 year old male admitted for ETOH/BENZO dependence. Patient has PMH of Anxiety, Depression, Insomnia. Per endorsement pt received x2 PRN Ativan,Benadryl effective per night nurse, Last CIWA score-8, slept for 7 hours. Patient received awake,alert and oriented x4, Educated patient regarding plan of care for the day and medication regimen with good verbal understanding. Safety measures in place. call light with in reach, will continue to monitor.
[2017-05-17 08:00] VITALS: BP 132/84
[2017-05-17] MEDS: IBUPROFEN 600 MG TABLET PO PRN ×2 (08:46→20:49)
[2017-05-17] MEDS: THIAMINE HCL 100 MG TABLET PO SCH (08:46)
[2017-05-17] MEDS: FOLIC ACID 1 MG TABLET PO SCH (08:46)
[2017-05-17] MEDS: MULTIVITAMINS,THERAPEUTIC TABLET PO SCH (08:46)
--- NOTE | 2017-05-17 08:46 | NUR ---
PRN MOTRIN Patient c/o of back aches4/10, PRN Motrin 600mg Po administered as ordered. Will cont to monitor for reassess.
[2017-05-17] MEDS ORDERED: TUBERCULIN,PURIF.PROT.DERIV. 5 TU/0.1 ML TEST ID ONE (09:00)
[2017-05-17] MEDS ORDERED: LORAZEPAM 1 MG TABLET PO SCH (09:00)
[2017-05-17] MEDS ORDERED: DOCUSATE SODIUM 250 MG CAPSULE PO SCH (09:00)
[2017-05-17] MEDS ORDERED: 5 DAY TAPER OF LORAZEPAM -SERENITY PROTOCOL PO PRN (09:00)
--- NOTE | 2017-05-17 09:46 | NUR ---
MOTRIN REASSESSMENT Per pt Motrin was effective in alleviating pain 07/28.
[2017-05-17] MEDS ORDERED: DIAZEPAM 10 MG TABLET PO PRN ×2 (11:15)
[2017-05-17] MEDS ORDERED: NICOTINE POLACRILEX 4 MG GUM-PK OF TEN BC PRN (11:15)
[2017-05-17] MEDS ORDERED: DIAZEPAM 5 MG TABLET PO PRN (11:15)
[2017-05-17 12:00] VITALS: BP 128/82
[2017-05-17] MEDS ORDERED: OXCARBAZEPINE 150 MG TABLET PO ONE (12:00)
[2017-05-17] MEDS: DIAZEPAM 10 MG TABLET PO SCH ×3 (12:07→20:45)
--- NOTE | 2017-05-17 13:45 | NUR ---
Activity Group Note: Client participated in "Hang" and "Sequence" activity. Intervention goal was to increase task focus and leisure skills. Client's mood appeared depressed and anxious with flat affect. Client seemed distracted throughout the activities, but was able to understand and complete the task. Client did not initiate conversation with peers or social services counselor. Client did not speak during group activity. tank worker will continue to encourage participation.
[2017-05-17 16:00] VITALS: BP 128/84
--- NOTE | 2017-05-17 16:44 | NUR ---
Therapist prompted client about group times. Client stated he will start attending groups tomorrow.
--- NOTE | 2017-05-17 19:11 | NUR ---
END OF SHIFT NOTE Patient is AOx4. Ativan taper changed to 5 day Valium taper, Patient is tolerating well. Patient received PRN medication noted to be effective. Pt compliant with medication and plan of care. Pt encouraged Po fluids as tolerated. Vital signs WNL. Last CIWA score was 6 at 1600. All needs met. Safety measures in place, call light within reach. Pt endorsed to night nurse in stable condition.
--- NOTE | 2017-05-17 19:12 | NUR ---
Start of shift note Received report from day shift nurse. Pt is a 22 yo male, A+Ox4, presenting to [facility] for ETOH dependence. Pt has NKA, is on Full code status, and on Regular diet. Pt is on Fall and Seizure precautions. Pt has HX of Anxiety, Depression, and Insomnia. Pt is on 5 day Valium taper, tolerated well. No s/s of distress noted at this time. Respirations even and unlabored. Will continue to monitor. Will continue to monitor.
[2017-05-17 20:16] VITALS: BP 129/95
[2017-05-17] MEDS: MIRTAZAPINE 15 MG TABLET PO SCH (20:45)
[2017-05-17] MEDS: OXCARBAZEPINE 300 MG TABLET PO SCH (20:45)
--- NOTE | 2017-05-17 20:56 | NUR ---
PRN Motrin Pt c/o lower back pain 10/26 and requested for PRN Motrin. Medication given and tolerated well. Will reassess within 1 HR. Will continue to monitor.
--- NOTE | 2017-05-17 21:55 | NUR ---
SHIFT NOTE: Patient endorsed by shift supervisor rn nurse. Report received. Patient is 22 year old male admitted to [facility] 05/16/2017 for ETOH dependence, continue ordered 5 days Valium Taper. Patient tolerated well without ASE. NKA; Regular Diet; Full Code, Fall and Seizures precautions. PMH: Anxiety (3 disorders); ADHD; Insomnia; Seizures History 2 years ago. Patient is sleeping. Latest CIWA 3 per report. VSWNL. Respirations unlabored and even. BS active in all x4 quadrants. Patient has no distress at this time. All safety measures in place by hospital policy: Call light within reach, bed in lowest position and locked. Padded rails up x2. Will continue to monitor. Addendum: 05/18/17 at 0033 by ADAM TEJEDA RN Patient is 22 year old male admitted to [facility] 05/16/2017 for Benzodiazepines and ETOH dependence, Addendum: 05/18/17 at 2134 by ADAM TEJEDA RN Patient is 22 year old male admitted to [facility] 05/16/2017 for ETOH and Benzodiazepines dependence, continue 5 Day Valium Taper.
--- NOTE | 2017-05-17 21:56 | NUR ---
RE-ASSESSMENT Patient is sleeping. Respirations even and unlabored. RR 16. PRN Motrin 600 mg 1 tab PO administrated to patient @2055 for pain was effective. All needs met. Safety measures on place. Call light within reach, bed in lowest position and locked, padded rails up bilaterally rails up bilaterally. Will continue to monitor closely. Addendum: 05/18/17 at 0031 by ADAM TEJEDA RN PRN Motrin 600 mg 1 tab PO administrated to patient @2048 for pain was effective.
[2017-05-18] VITALS: BP 101/52
[2017-05-18] MEDS: HYDROXYZINE PAMOATE 25 MG CAPSULE PO PRN (03:00)
--- NOTE | 2017-05-18 03:00 | NUR ---
PRN VISTARIL 25 MG 1 CAP PO ADMINISTRATION Patient c/o increased anxiety. PRN Vistaril 25 mg 1 capsule PO administrated with full glass of water as ordered. Patient tolerated well. All needs met. Safety measures on place. Call light within reach, bed in lowest position and locked, padded rails up bilaterally. Will continue to monitor closely.
[2017-05-18 04:00] VITALS: BP 102/59
--- NOTE | 2017-05-18 04:00 | NUR ---
RE-ASSESSMENT Patient is sleeping. Respirations even and unlabored. RR:17. PRN Vistaril PO was effective. All needs met. Safety measures on place. Call light within reach, bed in lowest position and locked, padded rails up bilaterally rails up bilaterally. Will continue to monitor closely.
--- NOTE | 2017-05-18 04:23 | NUR ---
PRN VALIUM 5 MG 1 TAB PO ADMINISTRATION PRN Valium 5 mg 1 tab. PO administrated for CIWA 7 with full glass of water as ordered. Patient tolerated well. All needs met. Safety measures on place. Call light within reach, bed in lowest position and locked, padded rails up bilaterally. Will continue to monitor closely.
--- NOTE | 2017-05-18 05:23 | NUR ---
RE-ASSESSMENT Patient is sleeping. Respirations even and unlabored. RR:16. PRN Valium PO was effective. All needs met. Safety measures on place. Call light within reach, bed in lowest position and locked, padded rails up bilaterally rails up bilaterally. Will continue to monitor closely.
--- NOTE | 2017-05-18 06:49 | NUR ---
END OF SHIFT Patient endorsed to day shift nurse. Report given. Patient is 21 years old male admitted to [facility] 05/16/2017 for ETOH and Benzodiazepines dependence, continue 5 Day Valium Taper with tolerated well without ASE. Patient remains compliant with treatment, medications, and diet regime. Patient's NKA; Regular Diet; Full Code, Fall and Seizures precautions. PMH: Anxiety, Depression, ADHD, Insomnia; Seizures History x 1: 2 years ago. Last CIWA 3 @040. COWS/CIWA taken when patient's awake during night. Last VS @040: T: 97.5, BP: 102/59, HR: 72, RR:20, RA O2Sat: 98%, pain level: "0/10". Patient denies SI/HI. Respirations unlabored and even. Skin is intact, warm and dry to touch. PRN Motrin 600 mg 1 tab PO administrated for back pain @2048, PRN Vistaril 25 mg 1 cap. PO administrated for anxiety @299, and PRN Valium 5 mg 1 tab. PO administrated @0423 for CIWA 7 were effective. Patient slept 8 hours, intake 1,100 ml, voided x2. Encouraged fluids intake as tolerated. Encouraged to attend groups activities. All needs met. Safety measures on place. Call light within reach, bed in lowest position and locked, padded rails up bilaterally. Patient endorsed to day shift nurse. Report given. Addendum: 05/18/17 at 2133 by ADAM TEJEDA RN Patient is 22 year old male admitted to [facility] 05/16/2017 for ETOH and Benzodiazepines dependence, continue 5 Day Valium Taper.
--- NOTE | 2017-05-18 07:08 | NUR ---
START OF SHIFT NOTE Received report from night nurse, 22 year old male admitted for ETOH/BENZO dependence. Patient has PMH of Anxiety, Depression, Insomnia. Per endorsement pt received x2 PRN Valium,Vistaril, Motrin effective per night nurse, Last CIWA score-7, slept for 8 hours. Patient received awake,alert and oriented x4, Educated patient regarding plan of care for the day and medication regimen with good verbal understanding. Safety measures in place. call light with in reach, will continue to monitor.
[2017-05-18 08:00] VITALS: BP 128/89
[2017-05-18] MEDS: VENLAFAXINE XR 150 MG CAP.SR.24H PO SCH (08:14)
[2017-05-18] MEDS: THIAMINE HCL 100 MG TABLET PO SCH (08:14)
[2017-05-18] MEDS: OXCARBAZEPINE 300 MG TABLET PO SCH ×2 (08:14→20:16)
[2017-05-18] MEDS: MULTIVITAMINS,THERAPEUTIC TABLET PO SCH (08:15)
[2017-05-18] MEDS: FOLIC ACID 1 MG TABLET PO SCH (08:15)
[2017-05-18] MEDS: BACLOFEN 20 MG TABLET PO PRN ×2 (08:39→16:58)
--- NOTE | 2017-05-18 08:39 | NUR ---
PRN BACLOFEN Pt c/o muscle spasms, PRN Baclofen 20mg 1 tab Po given and tolerated well. Will cont to monitor and reassess.
[2017-05-18] MEDS ORDERED: LORAZEPAM 1 MG TABLET PO SCH (09:00)
[2017-05-18] MEDS ORDERED: DIAZEPAM 10 MG TABLET PO SCH ×2 (09:00→21:00)
--- NOTE | 2017-05-18 09:39 | NUR ---
BACLOFEN REASSESSMENT Per pt Baclofen was effective muscle cramps subside.
[2017-05-18 11:09] LABS: HEPATITIS B SURFACE AG Negative (Negative)
[2017-05-18 12:00] VITALS: BP 125/89
[2017-05-18] MEDS: DIAZEPAM 10 MG TABLET PO SCH ×2 (12:51→16:16)
[2017-05-18 16:00] VITALS: BP 139/73
--- NOTE | 2017-05-18 16:16 | NUR ---
Criteria Noted consult Nutritional Assessment None of the Above Nutritional Risk moderate Diagnosis chemical dependency withdrawal Pertinent Medical Surgical History SAVANNA, Panic attacks, ADHD, Insomnia Subjective Information Pt is a 21 yo male admitted for medically supervised withdrawal. Pt seen d/t low BMI, visited pt at bedside. Pt stated that pt lost about 20 lbs over the course of 6months, which is significant. Pt stated that wt loss was d/t drug and alcohol use. Po intake 100% during hospital stay, encouraged pt to continue good po intake and to continue ordering preferences through dietary department. Current Diet Order Regular Pertinent Medications Remeron, Vitamin B1, Folic acid, MVI Pertinent Labs Labs WNL Height (Inches) 71.00 inches Patient Height 71 in Patient Weight 125 LBS Skin Breakdown No Skin Integrity Comment Skin intact Recent Weight Change Yes - Refer to subj [place] Body Weight 78.2 kg Weight Status Below Difficulty With Chewing/Swallowing Prior to Admission No Food Allergies No Food Intolerances No Usual Diet At Home Regular Usual Appetite Good Method Of Calculation 78.2 kg (IBW) Calories/Kcals/Kg 25-30 Kcals Calculated 9423-0992 Protein - g/kg 0.8-1.0 Protein Calculated 63-78 Fluid ml/kg 25-30 Fluid Calculated 0961-1139 Current Dietary Intake Good(75-100%) Comments Po intake 100%, BMI noted as low (17.4). Encourage continued good po intake Abdominal Distention No Gastrointestinal Symptoms None BM NORMAL- bowel sounds present Nutrition Tolerance Comments Tolerating diet Nutrition Problem #1 Underweight Nutrition Intervention/Recommendation #1 Encourage po intake, provide preferred meals/snacks Etiology #1 Poor dietary habits d/t drug/alcohol abuse Signs/Symptoms #1 BMI=17.4, significant unintended wt loss per pt interview Expected Outcomes/Goals Po intake >75% during hospital stay No significant wt change during hospital stay No N/V/D/C Addendum: 05/18/17 at [address] Amended: Links added.
--- NOTE | 2017-05-18 16:58 | NUR ---
PRN BACLOFEN Pt c/o muscle spasms, PRN Baclofen 20mg 1 tab Po given and tolerated well. Will cont to monitor and reassess.
--- NOTE | 2017-05-18 17:58 | NUR ---
BACLOFEN REASSESSMENT Per pt Baclofen was effective muscle spasms subside.
--- NOTE | 2017-05-18 18:56 | NUR ---
START OF SHIFT Patient is 21 years old male admitted to [facility] 05/16/2017 for ETOH and Benzodiazepines dependence, continue 5 Day Valium Taper. Patient tolerated well without ASE. Patient remains compliant with treatment, medications, and diet regime. Patient reports NKA. Patient is on Regular Diet; Full Code, Fall and Seizures precautions. PMH: Anxiety, Depression, ADHD, Insomnia; Seizures History x 1: 2 years ago. Upon endorsement patient is in his room alert and oriented x4 with stable gait. Speech is soft and clear. CIWA 6. VSWNL. Respirations unlabored and even. Lungs Sounds are clear thoroughly. Abdomen is soft, non-tender. Bowels Sounds presents in all x4 quadrants. Skin is intact, warm, and dry. Encouraged to fluids intake as tolerated. Encouraged to attending groups activities. All needs met. Safety measures in place: Call light within reach, bed locked, and in lowest position, padded bed rails up bilaterally. Patient endorsed by day shift nurse, report received. Addendum: 05/18/17 at 2133 by ADAM TEJEDA RN Patient is 22 years old male admitted to [facility] 05/16/2017 for ETOH and Benzodiazepines dependence, continue 5 Day Valium Taper.
--- NOTE | 2017-05-18 18:56 | NUR ---
END OF SHIFT NOTE Patient is AOx4. Patient cont on 5 day Valium taper, Patient is tolerating well. Patient received PRN Baclofen x2 noted to be effective. Pt compliant with medication and plan of care. Pt encouraged Po fluids as tolerated. Vital signs WNL. Last CIWA score was 5 at 1600. All needs met. Safety measures in place, call light within reach. Pt endorsed to night nurse in stable condition.
[2017-05-18 20:00] VITALS: BP 138/85
[2017-05-18] MEDS: MIRTAZAPINE 15 MG TABLET PO SCH (20:16)
[2017-05-19] VITALS (7 sets, daily range): BP systolic 111–145; BP diastolic 58–82
[2017-05-19] MEDS: HYDROXYZINE PAMOATE 25 MG CAPSULE PO PRN ×2 (03:28→11:36)
[2017-05-19] MEDS: BACLOFEN 20 MG TABLET PO PRN ×2 (03:28→09:48)
--- NOTE | 2017-05-19 03:28 | NUR ---
PRN VISTARIL 25 MG 1 CAP PO AND PRN BACLOFEN 20 MG 1 TAB PO ADMINISTRATION Patient c/o anxiety and muscle spasm. CIWA 7. PRN Vistaril 25 mg 1 cap PO for anxiety and PRN Baclofen 20 mg 1 tab PO for muscle spasm administrated with full glass of water as ordered. Patient tolerated well. All needs met. Safety measures on place. Call light within reach, bed in lowest position and locked, padded rails up bilaterally rails up bilaterally. Will continue to monitor closely. Addendum: 05/19/17 at 0337 by ADAM TEJEDA RN padded rails up bilaterally.
--- NOTE | 2017-05-19 04:28 | NUR ---
RE-ASSESSMENT Patient is sleeping. Respirations even and unlabored. RR:15. PRN Robaxin 750 mg 1 tab PO for myalgia and PRN Vistaril 25 mg 1 cap PO for anxiety were effective. All needs met. Safety measures on place. Call light within reach, bed in lowest position and locked, padded rails up bilaterally rails up bilaterally. Will continue to monitor closely.
[2017-05-19] MEDS: DICYCLOMINE HCL 10 MG CAPSULE PO PRN (05:57)
--- NOTE | 2017-05-19 05:57 | NUR ---
PRN BENTYL 20 MG 2 CAP PO ADMINISTRATION Patient c/o abdominal muscle spasm. PRN Bentyl 20 mg 2 caps. PO administrated with full glass of water as ordered. Patient tolerated well. All needs met. Safety measures on place. Call light within reach, bed in lowest position and locked, padded rails up bilaterally. Will continue to monitor closely.
--- NOTE | 2017-05-19 06:59 | NUR ---
RE-ASSESSMENT Patient is sleeping. Respirations even and unlabored. RR:15. PRN Bentyl 20 mg 2 cap for muscle spasm administrated @0328, was effective. All needs met. Safety measures on place. Call light within reach, bed in lowest position and locked, padded rails up bilaterally rails up bilaterally. Will continue to monitor closely.
--- NOTE | 2017-05-19 07:00 | NUR ---
END OF SHIFT Patient endorsed to day shift nurse. Report given. Patient is 21 years old male admitted to [facility] 05/16/2017 for ETOH and Benzodiazepines dependence, continue 5 Day Valium Taper with tolerated well without ASE. Patient remains compliant with treatment, medications, and diet regime. Patient reports NKA; Regular Diet; Full Code, Fall and Seizures precautions. PMH: Anxiety, Depression, ADHD, Insomnia; Seizures History x 1: 2 years ago. Last CIWA 5 @0400. COWS/CIWA taken when patient's awake during night. Last VS @0400: T: 97.5, BP: 102/59, HR: 72, RR:20, RA O2Sat: 98%, pain level: "0/10". Patient denies SI/HI. Respirations unlabored and even. Skin is intact, warm and dry to touch. PRN Vistaril 25 mg 1 cap PO administrated for anxiety @0328, PRN Baclofen 20 mg 1 tab for muscle spasm administrated @0328, PRN Bentyl 20 mg 2 caps. PO for abdominal muscle spasm administrated @0557 were effective. Patient slept 8 hours, intake 1,000 ml, voided x2. Encouraged fluids intake as tolerated. Encouraged to attend groups activities. All needs met. Safety measures on place. Call light within reach, bed in lowest position and locked, padded rails up bilaterally. Patient endorsed to day shift nurse. Report given. Addendum: 05/19/17 at 0701 by ADAM TEJEDA RN Patient is 22 year old male admitted to [facility] 05/16/2017 for ETOH and Benzodiazepines dependence,
--- NOTE | 2017-05-19 07:45 | NUR ---
START OF SHIFT Pt 22 y/o male admitted for etoh/ benzo dependence. Pt received in room on bed awake watching television. Pt alert and oriented to name, place, and time. Perrla. Skin warm and slightly moist to touch. Respirations even and unlabored. Bilateral hand tremors noted. It was reported that pt slept for 8 hours last night. Bed on lowest position with side rails x2 up for safety. Call light within reach. No distress noted at this time.
[2017-05-19] MEDS ORDERED: DIAZEPAM 5 MG TABLET PO SCH (09:00)
[2017-05-19] MEDS ORDERED: LORAZEPAM 1 MG TABLET PO SCH (09:00)
[2017-05-19] MEDS: VENLAFAXINE XR 150 MG CAP.SR.24H PO SCH (09:48)
[2017-05-19] MEDS: MULTIVITAMINS,THERAPEUTIC TABLET PO SCH (09:48)
[2017-05-19] MEDS: OXCARBAZEPINE 300 MG TABLET PO SCH ×2 (09:48→21:51)
[2017-05-19] MEDS: FOLIC ACID 1 MG TABLET PO SCH (09:48)
[2017-05-19] MEDS: DIAZEPAM 10 MG TABLET PO SCH ×3 (09:48→21:47)
[2017-05-19] MEDS: THIAMINE HCL 100 MG TABLET PO SCH (09:48)
[2017-05-19] MEDS: IBUPROFEN 600 MG TABLET PO PRN (09:48)
--- NOTE | 2017-05-19 09:48 | NUR ---
PRN Pt with c/o generalized body pain 11/25. Motrin po prn per MD order given and tolerated well.
--- NOTE | 2017-05-19 09:48 | NUR ---
PRN Pt states has generalized body aches 6/10. Baclofen po prn per MD order given and tolerated well.
--- NOTE | 2017-05-19 10:48 | NUR ---
HOLLIS BALDERAS Pt states pain 07/28.
--- NOTE | 2017-05-19 10:48 | NUR ---
PRN EVAL Pt states body aches 07/28.
[2017-05-19] MEDS ORDERED: OXCARBAZEPINE 150 MG TABLET PO ONE (11:30)
[2017-05-19] MEDS ORDERED: CLONIDINE HCL 0.2 MG TABLET PO ONE (11:30)
--- NOTE | 2017-05-19 11:38 | NUR ---
PRN Pt with c/o anxiety. Fredtaricorine po prn per MD order given and tolerated well. Addendum: 05/19/17 at 1141 by LOUIE ELKINS RN spelling correction Apurva> [email or web address]
--- NOTE | 2017-05-19 12:38 | NUR ---
HOLLIS BALDERAS Pt observed walking around on patio. No distress noted at this time.
--- NOTE | 2017-05-19 14:49 | NUR ---
Therapist prompted client about group times. Client stated he will try to attend groups today.
--- NOTE | 2017-05-19 18:15 | NUR ---
END OF SHIFT Pt 22 y/o male admitted for etoh/ benzo dependence. Pt alert and oriented to name, place, and time. Perrla. Skin warm and slightly moist to touch. Respirations even and unlabored. Bilateral hand tremors noted. Pt mostly in activity room and patio throughout the day. Pt did not attend group activity this morning. Pt was seen by MD today. Pt medication compliant and tolerated well. No ASE noted. Bed on lowest position with side rails x 2 up for safety. Call light within reach. No distress noted at this time.
--- NOTE | 2017-05-19 20:00 | NUR ---
START OF SHIFT NOTE RECEIVED REPORT FROM DAY SHIFT NURSE. PATIENT IS A 22 YEAR OLD MALE ADMITTED FOR ETOH/BENZO DEPENDENCE. PATIENT IS ON VALIUM TAPER. UPON ADMISSION, PATIENT REPORTS DRINKING WHISKEY 1 PINT DAILY FOR A MONTH AND USING XANAX 6 MG DAILY FOR A MONTH. PATIENT REPORTS PMH OF ANXIETY, DEPRESSION AND INSOMNIA. NO SEIZURE HISTORY. PATIENT SKIN INTACT. PATIENT WAS GIVEN PRN MOTRIN, BACLOFEN AND VISTARIL. LAST CIWA 5. RECEIVED PATIENT IN ROOM, RESTING. PATIENT STATES ANXIOUS, NOTED SWEATING, NO N/V, DENIES ANY PAIN AT THIS TIME. PATIENT ON FALL/SEIZURE PRECAUTION. SAFETY MEASURES IN PLACE. CALL LIGHT IN REACH. WILL CONTINUE TO MONITOR.
[2017-05-19] MEDS: MIRTAZAPINE 15 MG TABLET PO SCH (21:47)
[2017-05-20] VITALS: BP 98/56
--- NOTE | 2017-05-20 | NUR ---
CIWA DEFERRED PATIENT SLEEPING. CIWA DEFERRED. RESPIRATION EVEN AND UNLABORED. SAFETY MEASURES IN PLACE. CALL LIGHT IN REACH. WILL CONTINUE TO MONITOR.
[2017-05-20] MEDS: BACLOFEN 20 MG TABLET PO PRN ×3 (02:15→22:18)
[2017-05-20] MEDS: diphenhydrAMINE 50 MG CAPSULE PO PRN (02:15)
[2017-05-20] MEDS: HYDROXYZINE PAMOATE 25 MG CAPSULE PO PRN (02:15)
--- NOTE | 2017-05-20 02:15 | NUR ---
PRN BENADRYL, VISTARIL AND BACLOFEN ADMINISTRATION PATIENT REPORTS ANXIETY, UNABLE TO GO BACK TO SLEEP AND BACK PAIN. PRN BENADRYL, VISTARIL AND BACLOFEN GIVEN. WILL MONITOR FOR EFFECTIVENESS
--- NOTE | 2017-05-20 03:15 | NUR ---
PRN VISTARIL, BENADRYL AND BACLOFEN RE-ASSESSMENT PATIENT IN BED WITH EYES CLOSED. NO FACIAL GRIMACING. RESPIRATION EVEN AND UNLABORED. SAFETY MEASURES IN PLACE. CALL LIGHT IN REACH. WILL CONTINUE TO MONITOR.
[2017-05-20 04:00] VITALS: BP 94/56
--- NOTE | 2017-05-20 04:00 | NUR ---
CIWA DEFERRED PATIENT SLEEPING. CIWA DEFERRED. RESPIRATION EVEN AND UNLABORED. SAFETY MEASURES IN PLACE. CALL LIGHT IN REACH. WILL CONTINUE TO MONITOR.
[2017-05-20] MEDS: IBUPROFEN 600 MG TABLET PO PRN ×2 (06:28→22:18)
--- NOTE | 2017-05-20 06:28 | NUR ---
PRN MOTRIN ADMINISTRATION PATIENT C/O HEADACHE 10/26. PRN MOTRIN GIVEN. WILL MONITOR FOR EFFECTIVENESS
--- NOTE | 2017-05-20 07:28 | NUR ---
HOLLIS VELASQUEZ RE-ASSESSMENT PATIENT STATES HE FEELS MUCH BETTER. NO PAIN AT THIS TIME. WILL CONTINUE TO MONITOR
--- NOTE | 2017-05-20 07:29 | NUR ---
END OF SHIFT NOTE PATIENT IS A 22 YEAR OLD MALE ADMITTED FOR ETOH/BENZO DEPENDENCE. PATIENT IS ON VALIUM TAPER, TOLERATED WELL, NO ADVERSE REACTION. PATIENT WAS ANXIOUS, NOTED SWEATING, NO N/V, DENIES ANY PAIN AT THIS TIME BEGINNING OF THE SHIFT. PATIENT WAS GIVEN PRN VISTARIL, BENADRYL AND BACLOFEN. AT 0628, PATIENT C/O HEADACHE , PRN MOTRIN GIVEN. PATIENT COMPLIANT WITH MEDICATIONS . PATIENT ON FALL/SEIZURE PRECAUTION. SAFETY MEASURES IN PLACE. CALL LIGHT IN REACH. WILL CONTINUE TO MONITOR. SLEPT 8 HOURS. FLUID INTAKE 1,375 ML. VOIDED X 3 . NO BM. LAST CIWA 5.
--- NOTE | 2017-05-20 07:45 | NUR ---
START OF SHIFT Rcvd endorsement from ongoing nurse, client is in room, he is a/o x 4, he presents with depressed mood, flat affect. He reports restless legs, body aches, abdominal cramps, and chills. He is on room restrictions per administration, client verbalizes understanding. Encouraged client to attend group therapy for skills to maintain sober. Encouraged client to increase PO fluid as tolerated to facilitate detox. Client is a 22 y/o male, admitted to [facility] for withdrawal from alcohol and alprazolam. Client is on 5 day Diazepam taper (day 4), tolerating well. Last CIWA 5 @ 1999. PRN Vistaril for 25 mg PO for anxiety, Motrin 600mg PO for BRANDON 4/10, Baclofen 20mg PO, and Benadryl 50mg PO for inability to sleep, he slept 8 hrs. 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 Side rails x 2 up/padded for seizure precautions. Call light within reach.
[2017-05-20 08:15] VITALS: BP 132/88
[2017-05-20] MEDS: THIAMINE HCL 100 MG TABLET PO SCH (08:17)
[2017-05-20] MEDS: OXCARBAZEPINE 300 MG TABLET PO SCH ×2 (08:17→21:34)
[2017-05-20] MEDS: FOLIC ACID 1 MG TABLET PO SCH (08:17)
[2017-05-20] MEDS: MULTIVITAMINS,THERAPEUTIC TABLET PO SCH (08:17)
[2017-05-20] MEDS: VENLAFAXINE XR 150 MG CAP.SR.24H PO SCH (08:18)
[2017-05-20] MEDS ORDERED: LORAZEPAM 1 MG TABLET PO SCH (09:00)
[2017-05-20] MEDS ORDERED: DIAZEPAM 5 MG TABLET PO SCH (09:00)
[2017-05-20] MEDS: DIAZEPAM 10 MG TABLET PO SCH ×3 (12:13→21:34)
[2017-05-20 12:35] VITALS: BP 143/81
[2017-05-20] MEDS ORDERED: TRAZODONE 50 MG TABLET PO PRN (12:45)
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
[2017-05-20] MEDS ORDERED: QUETIAPINE FUMARATE 25 MG TABLET PO PRN (15:15)
--- NOTE | 2017-05-20 15:26 | NUR ---
PRN BACLOFEN/SEROQUEL Pt has Seroquel 50mg PO for agitation, administered as ordered. Pt tried hiding the the Seroquel under tongue, nurse intervened and educated ordered dose and reason, pt then complied. Pt states he gets muscle spasms, PRN Baclofen 20mg PO administered as ordered. Primary nurse to reassess.
--- NOTE | 2017-05-20 16:26 | NUR ---
REASSESSMENT PRN BACLOFEN/SEROQUEL Client appears less agitated and verbalizes relief from muscle spams.
[2017-05-20 16:55] VITALS: BP 141/77
[2017-05-20] MEDS ORDERED: HYDROXYZINE PAMOATE 25 MG CAPSULE PO PRN (17:45)
[2017-05-20] MEDS ORDERED: CLONIDINE HCL 0.1 MG TABLET PO PRN (17:45)
--- NOTE | 2017-05-20 19:29 | NUR ---
END OF SHIFT Client is a 22 y/o male, admitted to [facility] for withdrawal from alcohol and alprazolam. Client is on 5 day Diazepam taper (day 4), tolerating well. Last CIWA 7 @ 1600. PRN Seroquel 50mg PO for agitation, Baclofen 20mg Po for muscle spasms, noted effective. Client denies SI/HI, client is on a 1:1 sitter promoting safety. 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 Side rails x 2 up/padded for seizure precautions. Call light within reach.
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
[2017-05-20 20:00] VITALS: BP 101/57
[2017-05-20] MEDS: MIRTAZAPINE 15 MG TABLET PO SCH (21:33)
--- NOTE | 2017-05-20 22:19 | NUR ---
RN note PRN Motrin and Baclofen Pt c/o headache=8/10 and back pain=6/10. Administered Motrin 600 mg PO and Baclofen 20 mg PO as ordered. Will reassess.
--- NOTE | 2017-05-20 23:13 | NUR ---
RN note reassess Pt verbalized relief from pain with headache=2/10 and back pain=3/10.
[2017-05-21] VITALS: BP 96/49
[2017-05-21 04:00] VITALS: BP 104/52
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
[2017-05-21 07:32] LABS: CREATININE 0.8 mg/dL (0.6-1.3); MAGNESIUM 1.9 mg/dL (1.8-2.4); POTASSIUM 4.2 mmol/L (3.5-5.1)
--- NOTE | 2017-05-21 07:34 | NUR ---
START OF SHIFT Pt 22 y/o male admitted for etoh/ benzo dependence. Pt received in walking around in hallway with sitter 1:1 for safety. Pt alert and oriented to name, place, and time. Perrla. Skin warm and slightly moist to touch. Respirations even and unlabored. Bilateral hand tremors noted. Pt with sitter 1:1 to monitor for safety. It was reported that pt slept for 6 hours last night. Bed on lowest position with side rails x2 up for safety. Call light within reach. No distress noted at this time.
[2017-05-21 08:00] VITALS: BP 138/73
[2017-05-21] MEDS: MULTIVITAMINS,THERAPEUTIC TABLET PO SCH (08:29)
[2017-05-21] MEDS: FOLIC ACID 1 MG TABLET PO SCH (08:29)
[2017-05-21] MEDS: OXCARBAZEPINE 300 MG TABLET PO SCH ×2 (08:29→22:50)
[2017-05-21] MEDS: THIAMINE HCL 100 MG TABLET PO SCH (08:29)
[2017-05-21] MEDS: VENLAFAXINE XR 150 MG CAP.SR.24H PO SCH (08:29)
[2017-05-21] MEDS ORDERED: LORAZEPAM 1 MG TABLET PO SCH (09:00)
[2017-05-21] MEDS ORDERED: DIAZEPAM 5 MG TABLET PO SCH ×2 (09:00)
[2017-05-21] MEDS: IBUPROFEN 600 MG TABLET PO PRN (09:18)
[2017-05-21] MEDS: BACLOFEN 20 MG TABLET PO PRN (09:18)
--- NOTE | 2017-05-21 09:22 | NUR ---
PRN Pt states has generalized body aches 6/10. Baclofen po prn per MD order given and tolerated well.
--- NOTE | 2017-05-21 09:22 | NUR ---
PRN Pt states feels anxious. Catapres po prn per MD order given and tolerated well.
--- NOTE | 2017-05-21 09:23 | NUR ---
PRN Pt states has headache 4/10. Motrin po prn per MD order given and tolerated well.
--- NOTE | 2017-05-21 10:22 | NUR ---
HOLLIS BALDERAS Pt observed walking around the hallways.
--- NOTE | 2017-05-21 10:22 | NUR ---
PRN EVAL pt states body aches 08/28.
--- NOTE | 2017-05-21 10:23 | NUR ---
PRN EVAL Pt states headache 08/28.
[2017-05-21] MEDS ORDERED: CLONIDINE HCL 0.2 MG TABLET PO PRN (12:30)
[2017-05-21 12:36] VITALS: BP 128/78
[2017-05-21] MEDS: DIAZEPAM 5 MG TABLET PO SCH ×3 (12:44→22:49)
[2017-05-21] MEDS: METHOCARBAMOL 750 MG TABLET PO PRN (15:30)
--- NOTE | 2017-05-21 15:33 | NUR ---
PRN Pt with c/o body aches 12/26. Robaxin po prn per MD order given and tolerated well.
--- NOTE | 2017-05-21 16:33 | NUR ---
PRN EVAL Pt states body aches 08/28.
[2017-05-21 17:02] VITALS: BP 130/76
--- NOTE | 2017-05-21 18:18 | NUR ---
END OF SHIFT Pt 22 y/o male admitted for etoh/ benzo dependence. Pt alert and oriented to name, place, and time. Perrla. Skin warm and slightly moist to touch. Respirations even and unlabored. Bilateral hand tremors noted slightly. Pt with sitter 1:1 to monitor for safety. Pt mostly in activity room and patio throughout the day. Pt did not attend group activity this morning. Pt was seen by MD today. Pt medication compliant and tolerated well. No ASE noted. Bed on lowest position with side rails x 2 up for safety. Call light within reach. No distress noted at this time.
[2017-05-21 20:00] VITALS: BP 125/83
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
[2017-05-21] MEDS: MIRTAZAPINE 15 MG TABLET PO SCH (22:49)
[2017-05-22] VITALS: BP 108/67
[2017-05-22 04:00] VITALS: BP 112/65
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
--- NOTE | 2017-05-22 07:26 | NUR ---
START OF SHIFT Pt 22 y/o male admitted for etoh/ benzo dependence. Pt received awake sitting on bed watching television. Pt alert and oriented to name, place, and time. Perrla. Skin warm and slightly moist to touch. Respirations even and unlabored. Bilateral hand tremors noted. Pt with sitter 1:1 to monitor for safety. It was reported that pt slept for 5 hours last night. Bed on lowest position with side rails x2 up for safety. Call light within reach. No distress noted at this time.
[2017-05-22] MEDS: FOLIC ACID 1 MG TABLET PO SCH (08:41)
[2017-05-22] MEDS: BACLOFEN 20 MG TABLET PO PRN ×2 (08:41→21:15)
[2017-05-22] MEDS: VENLAFAXINE XR 150 MG CAP.SR.24H PO SCH (08:41)
[2017-05-22] MEDS: THIAMINE HCL 100 MG TABLET PO SCH (08:41)
[2017-05-22] MEDS: MULTIVITAMINS,THERAPEUTIC TABLET PO SCH (08:41)
[2017-05-22] MEDS: OXCARBAZEPINE 300 MG TABLET PO SCH ×2 (08:41→21:09)
--- NOTE | 2017-05-22 08:41 | NUR ---
PRN Pt states has body aches 6/10. Baclofen po prn per MD order given and tolerated well.
[2017-05-22 08:45] VITALS: BP 139/82
[2017-05-22] MEDS ORDERED: DIAZEPAM 5 MG TABLET PO SCH ×2 (09:00)
--- NOTE | 2017-05-22 09:41 | NUR ---
PRN EVAL Pt states body aches 08/28.
[2017-05-22 12:00] VITALS: BP 145/90
[2017-05-22] MEDS: IBUPROFEN 600 MG TABLET PO PRN ×2 (13:09→21:16)
[2017-05-22] MEDS: METHOCARBAMOL 750 MG TABLET PO PRN (13:09)
--- NOTE | 2017-05-22 13:12 | NUR ---
PRN Pt states has pain 4/10 of back. Motrin po prn per MD order given and tolerated well.
--- NOTE | 2017-05-22 13:12 | NUR ---
PRN Pt states he has generalized body aches /. Robaxin po prn per MD order given and tolerated well.
--- NOTE | 2017-05-22 13:13 | NUR ---
PRN Pt states feels anxious. Vistaril po prn per MD order given and tolerated well.
--- NOTE | 2017-05-22 13:14 | NUR ---
PRN Pt states feels very anxious. Catapres po prn per MD order given and tolerated well.
--- NOTE | 2017-05-22 14:12 | NUR ---
PRN EVAL Pt states body aches 07/28.
--- NOTE | 2017-05-22 14:12 | NUR ---
HOLLIS BALDERAS Pt states pain 07/28.
--- NOTE | 2017-05-22 14:14 | NUR ---
PRN ANDREY Pt observed walking around the unit. No distress noted at this time.
[2017-05-22] MEDS: GABAPENTIN 300 MG CAPSULE PO SCH ×2 (15:36→21:08)
[2017-05-22 16:00] VITALS: BP 103/58
[2017-05-22] MEDS: DIAZEPAM 5 MG TABLET PO SCH ×2 (16:24→21:09)
[2017-05-22] MEDS: DICYCLOMINE HCL 10 MG CAPSULE PO PRN (17:20)
--- NOTE | 2017-05-22 17:22 | NUR ---
PRN Pt with c/o stomach cramps. Bentyl po prn per MD order given and tolerated well.
--- NOTE | 2017-05-22 18:22 | NUR ---
PRN EVAL Pt states medication was effective and denies any stomach cramp right now.
--- NOTE | 2017-05-22 18:33 | NUR ---
END OF SHIFT Pt 22 y/o male admitted for etoh/ benzo dependence. Pt alert and oriented to name, place, and time. Perrla. Skin warm and slightly moist to touch. Respirations even and unlabored. Bilateral hand tremors noted slightly. Pt mostly in activity room and patio this morning. Pt did not attend group activity this morning. Pt was seen by MD today. Pt medication compliant and tolerated well. No ASE noted. Bed on lowest position with side rails x 2 up for safety. Call light within reach. No distress noted at this time.
--- NOTE | 2017-05-22 19:30 | NUR ---
START OF SHIFT Patient is a 22-year old, male, admitted for Alcohol and Xanax Dependence. Pt has NKA, on Regular Diet and is Full Code. Pt with hx of Anxiety, Depression, Withdrawal induced seizures and Insomnia. Pt continues on Valium taper and is tolerating well.Pt received restiong in bed with eyes closed;breathing is even and non labored,no s/s of acute distress noted. On Fall and seizure, precautions. All safety measures in place,Call light within reach.Latest CIWA=4. Will continue to monitor.
[2017-05-22 20:00] VITALS: BP 127/85
[2017-05-22] MEDS ORDERED: CLONIDINE HCL 0.2 MG TABLET PO ONE (21:00)
[2017-05-22] MEDS: MIRTAZAPINE 15 MG TABLET PO SCH (21:08)
[2017-05-22] MEDS: CLONIDINE HCL 0.2 MG TABLET PO SCH (21:10)
--- NOTE | 2017-05-22 21:16 | NUR ---
PRN MEDS PRN BACLOFEN AND MOTRIN GIVEN FOR C/O MUSCLE SPASMS AND HEADACHE 11/25,RESPECTIVELY.WILL MONITOR FOR EFFECTIVENESS.
--- NOTE | 2017-05-22 22:16 | NUR ---
PRN F/U PT VERBALIZES A RELIEF FROM ACHES AND PAIN.HEADACHE REDUCED TO 1/10.RESTING IN BED,READY TO SLEEP.REQUESTING NOT TO BE WOKEN UP FOR V/S IF SLEEPING.
--- NOTE | 2017-05-23 | NUR ---
V/S REFUSED;CIWA DEFERRED. PATIENT SLEEPING COMFORTABLY IN BED.DID NOT WANT TO BE WOKEN UP FOR V/S IF SLEEPING. CIWA DEFERRED. RESPIRATION EVEN AND UNLABORED. ALL SAFETY MEASURES IN PLACE. CALL LIGHT WITHIN REACH. WILL CONTINUE TO MONITOR.
[2017-05-23 04:00] VITALS: BP 109/61
--- NOTE | 2017-05-23 06:36 | NUR ---
END OF SHIFT Patient is a 22-year old, male, admitted for Alcohol and Xanax Dependence. Pt has NKA, on Regular Diet and is Full Code. Pt with hx of Anxiety, Depression, Withdrawal induced seizures and Insomnia. Pt continues on Valium taper and is tolerating well. On Fall and seizure, precautions.Last CIWA=3.PRN Baclofen and Motrin were given and were effective. Pt slept 8 hrs,fluid intake was 1000 mls ,voided x 1.All safety measures are in place per hospital policy,call light is within reach,will continue to monitor.
--- NOTE | 2017-05-23 07:45 | NUR ---
START OF SHIFT NOTE Received report from night nurse, 22 year old male admitted for ETOH/BENZO dependence. Patient has PMH of Anxiety, Depression, Insomnia. Per endorsement pt received x2 PRN Motrin,Baclofen effective per night nurse, Last CIWA score-3, slept for 8 hours. Patient received awake,alert and oriented x4, Educated patient regarding plan of care for the day and medication regimen with good verbal understanding. Safety measures in place. call light with in reach, will continue to monitor.
[2017-05-23 08:00] VITALS: BP 131/72
[2017-05-23] MEDS: OXCARBAZEPINE 300 MG TABLET PO SCH ×2 (08:30→21:27)
[2017-05-23] MEDS: FOLIC ACID 1 MG TABLET PO SCH (08:30)
[2017-05-23] MEDS: THIAMINE HCL 100 MG TABLET PO SCH (08:30)
[2017-05-23] MEDS: GABAPENTIN 300 MG CAPSULE PO SCH ×3 (08:30→21:25)
[2017-05-23] MEDS: MULTIVITAMINS,THERAPEUTIC TABLET PO SCH (08:31)
[2017-05-23] MEDS: CLONIDINE HCL 0.2 MG TABLET PO SCH ×2 (08:31→21:25)
[2017-05-23] MEDS: VENLAFAXINE XR 150 MG CAP.SR.24H PO SCH (08:31)
[2017-05-23] MEDS ORDERED: DIAZEPAM 5 MG TABLET PO SCH (09:00)
--- NOTE | 2017-05-23 10:48 | NUR ---
Therapist prompted client about group times. Client stated he will try to attend groups today.
[2017-05-23 12:00] VITALS: BP 104/58
[2017-05-23 16:00] VITALS: BP 131/79
[2017-05-23] MEDS ORDERED: OXCA300T4 PO (18:21)
[2017-05-23] MEDS ORDERED: CLON0.2T12 PO (18:21)
[2017-05-23] MEDS ORDERED: BACL20TA PO (18:21)
[2017-05-23] MEDS ORDERED: GABA-534 PO (18:21)
[2017-05-23] MEDS ORDERED: HYDR-3895 PO (18:21)
[2017-05-23] MEDS ORDERED: TRAZ-144 PO (18:21)
[2017-05-23] MEDS ORDERED: IBUP-1955 PO (18:21)
--- NOTE | 2017-05-23 18:36 | NUR ---
END OF SHIFT NOTE Pt completed his Valium taper tolerated well. Pt did not receive any PRN during shift. Pt compliant with medication and plan of care. Encouraged Po fluids as tolerated. Pt's last CIWA score was 2 at 1600. Patient scheduled for discharge in AM. Vital signs WNL. All needs met. Safety measures in place, call light within reach. Pt endorsed to night nurse in stable condition.
[2017-05-23 20:00] VITALS: BP 142/76
--- NOTE | 2017-05-23 20:00 | NUR ---
Start of Shift Pt is a 22 year old female admitted for ETOH/Benzo dependence, placed on Valium taper, completed. Pt reported consuming Whiskey 1 pint/daily and Xanax 6mg/daily. PMH: Anxiety, Depression and Insomnia. NKA, regular diet, fall/seizure precautions and full code. Upon assessment, pt presents with anxiety, reports mild body aches, respirations even/unlabored, denies SOB/chest pain, denies n/v/d, medications due. Pt is scheduled for discharge tomorrow. Safety measures in place, call light within reach, side rails up x2, bed locked and in low position. Will continue to monitor.
[2017-05-23] MEDS: MIRTAZAPINE 15 MG TABLET PO SCH (21:26)
[2017-05-23] MEDS: METHOCARBAMOL 750 MG TABLET PO PRN (21:36)
--- NOTE | 2017-05-23 21:36 | NUR ---
PRN Administration Pt reports muscle aches, rated 8/10, requests relief Robaxin 750mg PRN administered. Safety measures in place, will continue to monitor.
--- NOTE | 2017-05-23 22:36 | NUR ---
PRN Reassessment Pt reports relief of muscle aches. safety measure in place, will continue to monitor.
--- NOTE | 2017-05-23 22:40 | NUR ---
Behavioral Note Pt is agitated because he cannot go downstairs to smoke. Pt began to raise his voice and verbalize, "I can't believe I can't smoke, I am discharging tomorrow!" Supervisior AUTO BODY PAINTER spoke to pt stating he will allow him to smoke midnight. Pt redirected, comfort measures provided. Safety measures in place, will continue to monitor.
--- NOTE | 2017-05-24 | NUR ---
Pt refused to be woken up for 0000 VS. CIWA deferred due to pt sleeping To assess CIWA while pt is awake as ordered. Safety measures in place, will continue to monitor.
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
--- NOTE | 2017-05-24 04:00 | NUR ---
Pt refused to be woken up for 0400 VS. CIWA deferred due to pt sleeping To assess CIWA while pt is awake as ordered. Safety measures in place, will continue to monitor.
--- NOTE | 2017-05-24 07:00 | NUR ---
End of Shift Pt is a 22 year old female admitted for ETOH/Benzo dependence, placed on Valium taper, completed. Pt reported consuming Whiskey 1 pint/daily and Xanax 6mg/daily. PMH: Anxiety, Depression and Insomnia. NKA, regular diet, fall/seizure precautions and full code. During shift, pt presented with anxiety, reported mild body aches - scheduled medications administered along with Robaxin 750mg PRN, CIWA 2. Pt is scheduled for discharge today. Pt slept for 5 hours, intake of 3200 ml PO, voids x3 and stool x0. Safety measures in place, call light within reach, side rails up x2, bed locked and in low position. Endorsed to day shift nurse.
--- NOTE | 2017-05-24 07:37 | NUR ---
START OF SHIFT NOTE Received report from night nurse, 22 year old male admitted for ETOH/BENZO dependence. Patient has PMH of Anxiety, Depression, Insomnia. Per endorsement pt received PRN Robaxin effective per night nurse, Last CIWA score-, slept for 5 hours. Patient scheduled for discharge today @ 0900. Patient received awake,alert and oriented x4, Educated patient regarding plan of care for the day and medication regimen with good verbal understanding. Safety measures in place. call light with in reach, will continue to monitor.
[2017-05-24 08:00] VITALS: BP 130/89
[2017-05-24] MEDS: VENLAFAXINE XR 150 MG CAP.SR.24H PO SCH (08:28)
[2017-05-24] MEDS: MULTIVITAMINS,THERAPEUTIC TABLET PO SCH (08:28)
[2017-05-24] MEDS: FOLIC ACID 1 MG TABLET PO SCH (08:28)
[2017-05-24] MEDS: GABAPENTIN 300 MG CAPSULE PO SCH (08:28)
[2017-05-24] MEDS: THIAMINE HCL 100 MG TABLET PO SCH (08:28)
[2017-05-24] MEDS: OXCARBAZEPINE 300 MG TABLET PO SCH (08:28)
[2017-05-24 08:29] VITALS: BP 130/89
[2017-05-24] MEDS: CLONIDINE HCL 0.2 MG TABLET PO SCH (08:29)
--- NOTE | 2017-05-24 11:02 | NUR ---
DISCHARGE NOTE Patient is in stable condition. Vital signs WNL,Patient is alert oriented x4, Skin intact warm and dry to touch. Patient denies any SI/HI ideations. All discharge paper work done signed and dated. Patient educated about discharge instructions, Pt verbalized understanding. Patient 's last CIWA score was 2. Patient discharged from [facility] on 05/24/17 at 1102. Patient left the building with all of his belongings and prescriptions, Patient did not bring any medications with him to the unit. has been contracted and notified of Pt's discharge.
== END 2017-05-24 11:02 | disposition home or self-care (01) | DRG 895 ==
LOC: SRC 15:23
PROVIDERS: ADMIT Internal Medicine; ATTEND Internal Medicine
PROC: HZ2ZZZZ Detoxification Services for Substance Abuse Treatment (ICD-10-PCS; principal; 2017-05-16)
PROC: HZ41ZZZ Group Counseling for Substance Abuse Treatment, Behavioral (ICD-10-PCS; 2017-05-18)
PROC: HZ31ZZZ Individual Counseling for Substance Abuse Treatment, Behavioral (ICD-10-PCS; 2017-05-19)
DX: F10.232 Alcohol dependence with withdrawal with perceptual disturbance (principal); I15.9 Secondary hypertension, unspecified; F12.10 Cannabis abuse, uncomplicated; F13.232 Sedative, hypnotic or anxiolytic dependence with withdrawal with perceptual disturbance; Y90.9 Presence of alcohol in blood, level not specified; F17.210 Nicotine dependence, cigarettes, uncomplicated; Z83.3 Family history of diabetes mellitus; Z82.0 Family history of epilepsy and other diseases of the nervous system; Z81.1 Family history of alcohol abuse and dependence; G47.00 Insomnia, unspecified; F40.01 Agoraphobia with panic disorder; Z79.899 Other long term (current) drug therapy; Z91.89 Other specified personal risk factors, not elsewhere classified; F90.9 Attention-deficit hyperactivity disorder, unspecified type; R45.87 Impulsiveness; R73.9 Hyperglycemia, unspecified
CPT/HCPCS: 36415; 70030-TC; 80307; 83690; 83735; 85025; 86580; 86592; 86705; 86803; 87340; 87806; A4663; G0480; J3411; Q0163

== ENCOUNTER 2018-01-04 16:35 | Inpatient (IN) | payer BC, OTHER ==
[~2018-01-04] VITALS: Ht 180.3 cm; Wt 63.0 kg
[~2018-01-04 16:35] MED LIST changes: -ALPR2TAB5 PO; +BACL20TA PO; +CLON0.2T12 PO; -DIPH50CA37 PO; +GABA-534 PO; -Gabapentin PO; +IBUP-1955 PO; +OXCA300T4 PO; -TEMA30CA5 PO; +TRAZ-144 PO; +VENL150C2 PO
--- NOTE | 2018-01-04 20:00 | NUR ---
Intake Assessment Assessment done in intake office. Px appears intoxicated with good eye contact. Px is A&Ox4. Px ambulatory with steady gait. Speech is clear and audible. Px is cooperative during interview. VS are as follows BP= 134/75, OR= 69, RR= 16, T= 96.5 and O2sat= 99% on RA. Px is here for medically supervised withdrawal from ETOH and Xanax. Admission process will continue in the unit.
[2018-01-04] MEDS ORDERED: LORAZEPAM 2 MG/1 ML VIAL IM PRN (20:15)
[2018-01-04] MEDS ORDERED: MAG HYDROX/AL HYDROX/SIMETH 30 ML LIQUID UDC PO PRN (20:15)
[2018-01-04] MEDS ORDERED: NICOTINE 14 MG/24HR PATCH TD PRN (20:15)
[2018-01-04] MEDS ORDERED: diphenhydrAMINE 50 MG CAPSULE PO PRN (20:15)
[2018-01-04] MEDS ORDERED: MIRALAX 17 GM POWD.PACK PO PRN (20:15)
[2018-01-04] MEDS ORDERED: CLONIDINE HCL 0.1 MG TABLET PO PRN (20:15)
[2018-01-04] MEDS ORDERED: MAGNESIUM HYDROXIDE 30 ML LIQUID UDC PO PRN (20:15)
[2018-01-04] MEDS ORDERED: THIAMINE HCL 200 MG/2 ML VIAL IM ONE (20:15)
[2018-01-04] MEDS ORDERED: LORAZEPAM 1 MG TABLET PO PRN (20:15)
[2018-01-04] MEDS ORDERED: LOPERAMIDE HCL 2 MG CAPSULE PO PRN ×2 (20:15)
[2018-01-04] MEDS ORDERED: ONDANSETRON ODT 4 MG TAB.RAPDIS SL PRN (20:15)
[2018-01-04] MEDS ORDERED: ONDANSETRON 4 MG/2 ML VIAL IM PRN (20:15)
[2018-01-04 20:30] VITALS: BP 133/74
--- NOTE | 2018-01-04 20:30 | NUR ---
Admission Note Px is a 22 y/o male who is being admitted for medically supervised withdrawal from ETOH and Xanax. Px is currently intoxicated. Px appears anxious and depressed but has good eye contact. Px is A&Ox4. Speech is clear and audible. Px state that withdrawal from these substances has typically included high anxiety and insomnia. Px had hx of withdrawal-induced seizure, the last one was 1 year ago. Px states current substances use as follows: 1. ETOH- Beer of 12 cans daily for 6 mos, last taken today 01/04/2018 of 3 cans. Started drinking 5 years ago. 2. Xanax- 4 mg PO daily for 3 mos, last taken yesterday 01/03/2018 of 4 mg PO. Started taking 3 years ago. Px stated that he is seeking tx today because he wanted to detox from ETOH and Xanax. Px added that he is motivated now than before. Px wanted to continue his tx in rehabilitation center after this detox and go home with successful treatment. Px stated that he has been in detox/tx for 7x already and last 1 [facility] 8 mos ago. Px stated that he relapsed 6 mos ago due to that he wanted enjoyment. VS are as follows BP= 133/74, MS= 71, RR= 16, T= 97.4, O2sat= 99% on RA. No complaints of pain at the moment. Pulse is regular and WNL. Respiration are even and unlabored. Lung sounds are clear. Bowel sounds are active in all 4 quadrants. Last BM today 01/04/2018. Skin is intact. Px follows regular diet at home. Px has NKA. Px stands at 5'11" and weighs 139 lbs on standing scale. Px smokes 1 pack of cigarettes a day. Px reported PMH of anxiety, depression, and withdrawal-induced seizure 1 year ago. Px was educated about the plan of care including detox, individual therapy, group therapy and D/C planning. Px encouraged to be open and honest for a successful detox and recovery.
[2018-01-04 20:37] LABS: *AMPHETAMINE, URINE NEGATIVE (NEGATIVE); *BARBITURATE, URINE NEGATIVE (NEGATIVE); *CANNABINOID, URINE POSITIVE (NEGATIVE); *COCCAINE, URINE NEGATIVE (NEGATIVE); *OPIATE, URINE NEGATIVE (NEGATIVE); *PHENCYCLIDINE SCREEN,URINE NEGATIVE (NEGATIVE)
[2018-01-04] MEDS ORDERED: DESV50TA PO (21:30)
[2018-01-04] MEDS ORDERED: BUPR-51 PO (21:30)
[2018-01-04] MEDS: GABAPENTIN 400 MG CAPSULE PO SCH (21:32)
[2018-01-04] MEDS: LORAZEPAM 1 MG TABLET PO PRN (21:39)
--- NOTE | 2018-01-04 21:39 | NUR ---
PRN Ativan Px received Ativan 1 mg/tab, 1 tab PO for CIWA 8. We'll continue to monitor.
[2018-01-04 21:58] LABS: BASOPHILS # (AUTO) 0.1 K/uL (0.0-8.0); BASOPHILS % (AUTO) 0.6 % (0.0-2.0); EOSINOPHILS # (AUTO) 0.1 K/uL (0.0-0.7); EOSINOPHILS % (AUTO) 0.9 % (0.0-7.0); HEMATOCRIT 45.1 % (36.7-47.1); HEMOGLOBIN 15.4 g/dL (12.5-16.3); LYMPHOCYTES # (AUTO) 2.1 K/uL (20.0-40.0); LYMPHOCYTES % (AUTO) 26.1 % (20.5-51.5); MEAN CORPUSCULAR HEMOGLOBIN 29.2 uug (23.8-33.4); MEAN CORPUSCULAR HGB CONC 34 g/dL (32.5-36.3); MEAN CORPUSCULAR VOLUME 85.4 fL (73.0-96.2); MONOCYTES # (AUTO) 0.8 K/uL (2.0-10.0); MONOCYTES % (AUTO) 9.7 % (0.0-11.0); NEUTROPHILS # (AUTO) 5.1 K/uL (1.8-8.9); NEUTROPHILS % (AUTO) 62.7 % (38.5-71.5); PLATELET COUNT (AUTO) 351 K/uL (152-348); RED BLOOD CELL COUNT(AUTO) 5.28 MIL/uL (4.06-5.63); WHITE BLOOD COUNT (AUTO) 8.2 K/uL (3.6-10.2)
[2018-01-04 22:15] LABS: BILIRUBIN,TOTAL 0.3 mg/dL (0.2-1.0); CREATININE 0.9 mg/dL (0.6-1.3); MAGNESIUM 2.1 mg/dL (1.8-2.4); POTASSIUM 3.7 mmol/L (3.5-5.1); TOTAL PROTEIN, SERUM 7.8 g/dL (6.4-8.2)
[2018-01-05] VITALS: BP 121/72
[2018-01-05 04:00] VITALS: BP 118/70
--- NOTE | 2018-01-05 04:00 | NUR ---
CIWA deferred CIWA deferred at 0000 and 0400 due to the px is asleep, to assess if the px is awake per doctor's order. We'll continue to monitor.
--- NOTE | 2018-01-05 07:10 | NUR ---
End of Shift Note During the shift at 2138, px received Ativan 1 mg PO as PRN medication for CIWA 8. Pxs oral intake is 600 ml, voided 2x, with no BM. Px slept for 5.5 hours. Last CIWA 8. At 0630, px is awake on bed in left side lying position. Bed on lowest position, side rails up and call light within reach. Well continue to monitor. Px endorsed to AM shift nurse.
--- NOTE | 2018-01-05 07:35 | NUR ---
START OF SHIFT Pt is a 22 yr old male, AA&ox4. Pt was admitted on 01/04/18 for ETOH and Benzo withdrawal and is on PRN's for s/s of w/d. Received report from jig worker nurse. Pt received Ativan 1mg PO PRN for s/s of w/d. Medication was effective. Pt slept fro 6 hrs. Last CIWA score was 8 during the night. Pt is currently in bed resting with respirations even and unlabored. Skin is intact, warm and moist to touch. Pt has PMH of seizures, anxiety and depression. Pt is on fall and seizure precautions. Call light is within reach. Will continue to monitor.
[2018-01-05 08:08] VITALS: BP 117/52
[2018-01-05] MEDS: FOLIC ACID 1 MG TABLET PO SCH (08:55)
[2018-01-05] MEDS: LORAZEPAM 1 MG TABLET PO SCH ×4 (08:55→20:51)
[2018-01-05] MEDS: GABAPENTIN 400 MG CAPSULE PO SCH ×3 (08:55→20:52)
[2018-01-05] MEDS: THIAMINE HCL 100 MG TABLET PO SCH (08:55)
[2018-01-05] MEDS: MULTIVITAMINS,THERAPEUTIC TABLET PO SCH (08:55)
[2018-01-05] MEDS ORDERED: TUBERCULIN,PURIF.PROT.DERIV. 5 TU/0.1 ML TEST ID ONE (09:00)
[2018-01-05 12:00] VITALS: BP 141/93
[2018-01-05] MEDS: NICOTINE POLACRILEX 4 MG GUM-PK OF TEN BC PRN (13:51)
--- NOTE | 2018-01-05 13:51 | NUR ---
PRN GIVEN Pt requested for Nicotine gum for smoking cessation. Nicotine 4mg gum was given as ordered. Will continue to monitor.
[2018-01-05 16:00] VITALS: BP 127/84
[2018-01-05] MEDS ORDERED: QUETIAPINE FUMARATE 25 MG TABLET PO PRN (17:00)
[2018-01-05] MEDS ORDERED: MISCELLANEOUS MED XX PRN (17:00)
[2018-01-05] MEDS: DESVENLAFAXINE 50 MG PO SCH (17:34)
--- NOTE | 2018-01-05 19:18 | NUR ---
END OF SHIFT Pt is a 22 yr old male, AA&ox4. Pt was admitted on 01/04/18 for ETOH and Benzo withdrawal and is on a 5 day Ativan taper as ordered. Medication was humera well. Pt has been cooperative with medication regimen and plan of care. Pt refused to attend group and remained in his room throughout the day. Pt has been c/o anxiety, chills and headache during the day. Pt is noted with flat affect and disheveled appearances. Pt received Nicotine Gum 4mg PRN for smoking Cessation. Last CIWA score was 11 at 1600.Encouraged increase fluid intake for hydration. Pt is on fall and seizure precautions. Call light is within reach. Endorsed to machinist 2nd shift nurse to continue with care.
--- NOTE | 2018-01-05 19:40 | NUR ---
Start of Shift Note Received an 22 y/o male px, admitted for medically supervised withdrawal from ETOH and Xanax. Px is placed on 5 day Ativan taper started 01/05/2018. Px is tolerating it. Last CIWA reported was 11 by AM shift nurse. During the rounds at 2000, px is awake standing inside his room. Px appears anxious, depressed and with flat affect. Some unfinished drinks and snacks noted on top of the bed side table. Px stated My anxiety is 6/10 and I have a LBP, maybe around 6/10. Can I have Robaxin or Baclofen?" Bilateral hand tremors noted. Bed on lowest position, side rails up and call light within reach. Well continue to monitor.
[2018-01-05 20:00] VITALS: BP 122/80
[2018-01-05] MEDS: IBUPROFEN 400 MG TABLET PO PRN (20:52)
--- NOTE | 2018-01-05 20:52 | NUR ---
PRN Motrin Px received Motrin 400 mg /tab, 1 tab PO for LBP of 12/26. We'll continue to monitor.
--- NOTE | 2018-01-05 21:52 | NUR ---
Reassessment of LBP Px stated that his LBP improved.
--- NOTE | 2018-01-05 22:07 | NUR ---
PRN Seroquel Px received Seroquel 50 mg PO for insomnia. We'll continue to monitor.
[2018-01-05] MEDS: ACETAMINOPHEN 325 MG TABLET PO PRN (23:20)
--- NOTE | 2018-01-05 23:20 | NUR ---
PRN meds Px received Ativan 1 mg PO for CIWA 12 and Tylenol 650 mg PO for leg cramps. We'll continue to monitor.
[2018-01-05] MEDS: LORAZEPAM 1 MG TABLET PO PRN (23:21)
[2018-01-06] VITALS: BP 129/85
[2018-01-06] MEDS ORDERED: METHOCARBAMOL 750 MG TABLET PO ONE (00:15)
--- NOTE | 2018-01-06 00:37 | NUR ---
1x dose Robaxin and PRN Benadryl Px complained of muscle cramps that was not relieved by Tylenol and also insomnia. Px received 1x dose of Robaxin 750 mg PO and Benadryl 50 mg PO as PRN. We'll continue to monitor.
[2018-01-06 04:00] VITALS: BP 124/81
--- NOTE | 2018-01-06 04:00 | NUR ---
CIWA deferred CIWA deferred due to the px is asleep, to assess if the px is awake per doctor's order. We'll continue to monitor.
--- NOTE | 2018-01-06 07:10 | NUR ---
End of Shift Note During the shift at 2051, Motrin 400 mg given PO for LBP, it was effective. At 232, Tylenol 650 mg given PO for leg cramps and Ativan 1 mg given PO for CIWA 12. At 0030, px received Benadryl 50 mg PO for insomnia and Robaxin 750 mg given PO as 1x dose for leg cramps. Pxs oral intake is 1000 ml, voided 3x, without BM. Px slept for 5 hours. At 0630, px is asleep on bed in right side lying position. Last CIWA 10. Bed on lowest position, side rails up and call light within reach. Well continue to monitor. Px endorsed to AM shift nurse
--- NOTE | 2018-01-06 07:30 | NUR ---
START OF SHIFT Pt 22 y/o male admitted for eoth and xanax withdrawal. Pt received in room on bed with eyes closed resting, but easily arousable to name. Pt alert and oriented to name, place, and time. Perrla. Skin warm and moist to touch. Respirations even and unlabored. Bilateral hand tremors noted. Pt appears disheveled and unkempt. Clothes, food wrappings, and empty drink bottles scattered throughout the room. Encouraged to maintain hygiene. Pt anxious this morning. It was reported that pt slept for 5 hours last night. Last reported ciwa=10 @2100. Pt is on a 5 day ativan taper and is on day 2. Bed on lowest position with side rails x2 up for safety. Call light within reach.
[2018-01-06 08:00] VITALS: BP 139/93
[2018-01-06 08:06] LABS: HEPATITIS B SURFACE AG Negative (Negative)
[2018-01-06] MEDS: THIAMINE HCL 100 MG TABLET PO SCH (09:09)
[2018-01-06] MEDS: MULTIVITAMINS,THERAPEUTIC TABLET PO SCH (09:09)
[2018-01-06] MEDS: buPROPion XL 150 MG TAB.SR.24H PO SCH (09:09)
[2018-01-06] MEDS: FOLIC ACID 1 MG TABLET PO SCH (09:09)
[2018-01-06] MEDS: LORAZEPAM 1 MG TABLET PO SCH ×3 (09:09→20:52)
[2018-01-06] MEDS: GABAPENTIN 400 MG CAPSULE PO SCH ×3 (09:09→20:52)
[2018-01-06] MEDS: DESVENLAFAXINE 50 MG PO SCH (09:11)
[2018-01-06 12:00] VITALS: BP 98/64
[2018-01-06] MEDS ORDERED: LORAZEPAM 1 MG TABLET PO PRN ×2 (14:15)
[2018-01-06 16:00] VITALS: BP 118/73
--- NOTE | 2018-01-06 16:44 | NUR ---
PRN Pt states very anxious. Bilateral hand tremors noted. Ciwa=12. Ativan 2mg po prn per MD order given and tolerated well.
--- NOTE | 2018-01-06 17:44 | NUR ---
PRN EVAL Pt with ciwa=7
--- NOTE | 2018-01-06 18:46 | NUR ---
END OF SHIFT Pt 22 y/o male admitted for etoh and xanax withdrawal. Pt alert and oriented to name, place, and time. Perrla. Skin warm and moist to touch. Respirations even and unlabored. Bilateral hand tremors noted. Pt appears disheveled and unkempt. Clothes and food wrappings scattered throughout the room. Encouraged to maintain hygiene. Pt with periods of anxiety this afternoon. Pt observed mostly isolative to room throughout the day. Pt did not attend group activity today. Pt was seen by MD today. Pt medication compliant and tolerated well. No ASE noted. Pt is on a 5 day ativan taper and is on day 2. Ciwa=10@0800, 10@1200, and 12@1600. Bed on lowest position with side rails x2 up for safety. Call light within reach.
--- NOTE | 2018-01-06 19:53 | NUR ---
START OF SHIFT NOTE Rcvd report from outgoing nurse, pt. is in group. Pt. is a 22 y/o male A/O to person, place, time, and purpose. Pt. was admitted for medically supervised withdrawal from ETOH and Benzodiazepines. Pt. has been presenting w/ anxiety, depressed mood, flat affect, body aches, chills, and sweats. Pt. denies S/I and H/I. PRN Ativan was given for increased anxiety, noted effective. Last CIWA 12 @ 1600. Call light is within reach. Pt. will continue to be monitored and needs met.
[2018-01-06 20:00] VITALS: BP 149/89
--- NOTE | 2018-01-07 00:02 | NUR ---
CIWA DEFERRED AND V/S REFUSED Pt. is in bed w/ his eyes closed. Pt.'s breathing is unlabored and even.
--- NOTE | 2018-01-07 04:02 | NUR ---
CIWA DEFERRED AND V/S REFUSED Pt. is in bed w/ his eyes closed. Pt.'s breathing is unlabored and even.
--- NOTE | 2018-01-07 07:15 | NUR ---
END OF SHIFT NOTE Endorsed pt. to oncoming nurse, pt. is in group. Pt. is a 22 y/o male A/O to person, place, time, and purpose. Pt. was admitted for medically supervised withdrawal from ETOH and Benzodiazepines. Pt. continues to present w/ anxiety, depressed mood, flat affect, body aches, chills, and sweats. Pt. denies S/I and H/I. Pt. rcvd no PRN medications. Pt.s fluid intake was 2546ml and he voided 2 times. Pt. slept for 6 hrs. Last CIWA 13 @ 1999. Call light is within reach.
--- NOTE | 2018-01-07 07:30 | NUR ---
START OF SHIFT Pt 22 y/o male admitted for eoth and xanax withdrawal. Pt received in room on bed with eyes closed resting, but easily arousable to name. Perrla. Pt alert and oriented to name, place, and time. Skin warm and moist to touch. Respirations even and unlabored. Bilateral hand tremors noted. Pt appears disheveled and unkempt. Clothes and empty drink bottles scattered throughout the room. Encouraged to maintain hygiene. Pt is low motivation for self care. Pt appears irritable this morning. It was reported that pt slept for 6 hours last night. Last reported ciwa=13 @2100. Pt is on a 5 day ativan taper and is on day 3. Bed on lowest position with side rails x2 up for safety. Call light within reach.
[2018-01-07 08:00] VITALS: BP 123/80
[2018-01-07] MEDS: THIAMINE HCL 100 MG TABLET PO SCH (08:21)
[2018-01-07] MEDS: MULTIVITAMINS,THERAPEUTIC TABLET PO SCH (08:21)
[2018-01-07] MEDS: FOLIC ACID 1 MG TABLET PO SCH (08:21)
[2018-01-07] MEDS: buPROPion XL 150 MG TAB.SR.24H PO SCH (08:21)
[2018-01-07] MEDS: LORAZEPAM 1 MG TABLET PO SCH ×3 (08:21→17:21)
[2018-01-07] MEDS: GABAPENTIN 400 MG CAPSULE PO SCH ×3 (08:21→20:27)
[2018-01-07] MEDS: DESVENLAFAXINE 50 MG PO SCH (08:21)
[2018-01-07] MEDS ORDERED: LORAZEPAM 1 MG TABLET PO PRN ×2 (11:30)
[2018-01-07 12:00] VITALS: BP 131/100
[2018-01-07] MEDS: IBUPROFEN 400 MG TABLET PO PRN ×2 (13:21→20:47)
--- NOTE | 2018-01-07 13:22 | NUR ---
PRN ATIVAN 1MG Pt in room observed pacing. Pt appears irritable with pressured speech and clenched fists noted. ciwa=11. Ativan 1mg po prn per MD order given and tolerated well.
--- NOTE | 2018-01-07 13:22 | NUR ---
PRN IBUPROFEN Pt states has 5/10 headache. Motrin po prn per MD order given and tolerated well.
[2018-01-07 16:00] VITALS: BP 143/80
[2018-01-07] MEDS ORDERED: hydrALAZINE HCL 50 MG TABLET PO PRN (18:45)
--- NOTE | 2018-01-07 19:00 | NUR ---
END OF SHIFT Pt 22 y/o male admitted for etoh and xanax withdrawal. Pt alert and oriented to name, place, and time. Perrla. Skin warm and moist to touch. Respirations even and unlabored. Bilateral hand tremors noted. Pt appears disheveled and unkempt. Clothes scattered throughout the room. Encouraged to maintain hygiene. Pt with periods of anxiety throughout the day. Pt observed mostly isolative to room throughout the day. Pt did not attend group activity. Pt was seen by MD today. Pt medication compliant and tolerated well. No ASE noted. Pt is on a 5 day ativan taper and is on day 3. Ciwa=11@0800, 12@1200, and 11@1600. Bed on lowest position with side rails x2 up for safety. Call light within reach.
--- NOTE | 2018-01-07 19:47 | NUR ---
START OF SHIFT NOTE Rcvd report from outgoing nurse, pt. is in group. Pt. is a 22 y/o male A/O to person, place, time, and purpose. Pt. was admitted for medically supervised withdrawal from ETOH and Benzodiazepines. Pt. has been presenting w/ anxiety, depressed mood, blunt affect, sweats, headache, and flushing. PRN Ativan given for anxiety, noted effective. PRN Motrin given for pain, noted effective. Pt. denies S/I and H/I. Last CIWA 11 @ 1600. Call light is within reach. Pt. will continue to be monitored and needs met.
[2018-01-07 20:00] VITALS: BP 139/87
[2018-01-07] MEDS: PROPRANOLOL HCL 20 MG TABLET PO SCH (20:27)
--- NOTE | 2018-01-07 20:47 | NUR ---
PRN ADMINISTRATION PRN Motrin 400mg given, pt. c/o body aches and headache. Pt. states 4/10 pain. Will reassess pt in 1 hr.
[2018-01-07] MEDS ORDERED: LORAZEPAM 1 MG TABLET PO SCH (21:00)
--- NOTE | 2018-01-07 21:47 | NUR ---
PRN REASSESSMENT Pt assessed after giving Motrin 400mg an hr ago. Pt. states relief of pain down to 2/10. Will continue to monitor pt's pain level.
[2018-01-08] VITALS: BP 138/84
--- NOTE | 2018-01-08 04:00 | NUR ---
CIWA DEFERRED AND V/S REFUSED Pt is in bed w/ his eyes closed. Pt's breathing is unlabored and even.
[2018-01-08] MEDS: NICOTINE POLACRILEX 4 MG GUM-PK OF TEN BC PRN (06:26)
--- NOTE | 2018-01-08 07:15 | NUR ---
END OF SHIFT NOTE Endorsed pt to oncoming nurse, pt. is in his room. Pt. is a 22 y/o male A/O to person, place, time, and purpose. Pt. was admitted for medically supervised withdrawal from ETOH and Benzodiazepines. Pt. continues to present w/ anxiety, depressed mood, blunt affect, sweats, body aches, and flushing. PRN Motrin 400mg was given for body ache pain /10, noted effective 2/10 pain. Pt. denies S/I and H/I. Pts fluid intake was 2000ml and he voided 1 time. Pt slept for 5hrs. Last CIWA 10 @ 0000. Call light is within reach.
--- NOTE | 2018-01-08 07:30 | NUR ---
START OF SHIFT Pt 22 y/o male admitted for eoth and xanax withdrawal. Pt received in room on bed with eyes closed resting, but easily arousable to name. Perrla. Pt alert and oriented to name, place, and time. Skin warm and moist to touch. Respirations even and unlabored. Bilateral hand tremors noted. Pt appears disheveled. Clothes scattered throughout the room. Encouraged to maintain hygiene. Pt labile with flat affect. It was reported that pt slept for 6 hours last night. Last reported ciwa=10 @2100. Pt is on a 5 day ativan taper and is on day 4. It was reported that pt received motrin po prn per MD order for c/o headache last night. Bed on lowest position with side rails x2 up for safety. Call light within reach.
[2018-01-08 08:00] VITALS: BP 126/80
[2018-01-08] MEDS: THIAMINE HCL 100 MG TABLET PO SCH (09:16)
[2018-01-08] MEDS: LORAZEPAM 1 MG TABLET PO SCH ×3 (09:16→20:50)
[2018-01-08] MEDS: FOLIC ACID 1 MG TABLET PO SCH (09:16)
[2018-01-08] MEDS: MULTIVITAMINS,THERAPEUTIC TABLET PO SCH (09:16)
[2018-01-08] MEDS: PROPRANOLOL HCL 20 MG TABLET PO SCH ×2 (09:16→20:50)
[2018-01-08] MEDS: buPROPion XL 150 MG TAB.SR.24H PO SCH (09:16)
[2018-01-08] MEDS: GABAPENTIN 400 MG CAPSULE PO SCH ×3 (09:16→20:49)
[2018-01-08] MEDS: DESVENLAFAXINE 50 MG PO SCH (09:19)
[2018-01-08 12:00] VITALS: BP 124/83
--- NOTE | 2018-01-08 13:00 | NUR ---
PRN ZOFRAN Pt states feels nauseated. Zofran odt prn per MD order given and tolerated well.
--- NOTE | 2018-01-08 14:00 | NUR ---
PRN ZOFRAN Pt denies any nausea at this time.
[2018-01-08 16:00] VITALS: BP 139/77
[2018-01-08] MEDS ORDERED: HYDROXYZINE PAMOATE 25 MG CAPSULE PO PRN (18:15)
--- NOTE | 2018-01-08 18:57 | NUR ---
END OF SHIFT Pt 22 y/o male admitted for etoh and xanax withdrawal. Pt alert and oriented to name, place, and time. Perrla. Skin warm and moist to touch. Respirations even and unlabored. Bilateral hand tremors noted. Pt appears disheveled. Clothes and food wrappings scattered throughout the room. Encouraged to maintain hygiene. Pt with periods of anxiety throughout the afternoon. Pt observed mostly isolative to room throughout the day. Pt selective with group activity. Pt was seen by MD today. Pt medication compliant and tolerated well. No ASE noted. Pt is on a 5 day ativan taper and is on day 4. Last ciwa=11. Bed on lowest position with side rails x2 up for safety. Call light within reach.
--- NOTE | 2018-01-08 19:10 | NUR ---
START OF SHIFT Patient is a 22-year-old male admitted on 01/04/18 for ETOH and benzo withdrawal. Patient is currently on a 5-day Ativan taper, tolerating well, although he reports anxiety is extremely high. Patients last CIWA was 11 per endorsement. Patient received no PRN medications during the day. Upon assessment, patient appears quiet and anxious, restlessly fidgeting. Patient complains of headache 4/10. Patients room is cluttered with clothes, bed is unmade, with several beverage bottles by bedside. Patient is on fall and seizure precautions, with most recent seizure reported 1 year ago. Safety measures in place, side rails up x2, bed locked in low position, call light within reach. Will continue to monitor.
[2018-01-08 20:00] VITALS: BP 142/94
--- NOTE | 2018-01-08 20:50 | NUR ---
PRN HYDRALAZINE & VISTARIL Patient reports increased anxiety and has a current BP of 152/98. PRN Vistaril and Hydralazine given PO. Safety measures in place, side rails up x2, bed locked in low position, call light within reach. Will monitor for effectiveness.
[2018-01-08] MEDS: ACETAMINOPHEN 325 MG TABLET PO PRN (21:18)
--- NOTE | 2018-01-08 21:18 | NUR ---
PRN TYLENOL Patient reports "dull" headache of 4/10 on pain scale and requests pain relief. PRN Tylenol given PO. Safety measures in place, call light within reach. Will monitor for effectiveness.
--- NOTE | 2018-01-08 21:50 | NUR ---
PRN HYDRALAZINE & VISTARIL REASSESSMENT Patient reports no improvement in anxiety level. PRN Vistaril not effective. Patient's current BP is 128/84, HR 70. PRN Hydralazine effective in lowering patient's BP. Safety measures in place, side rails up x2, bed locked in low position, call light within reach. Will continue to monitor.
--- NOTE | 2018-01-08 22:18 | NUR ---
PRN TYLENOL REASSESSMENT Patient reports that his headache is resolved. PRN Tylenol effective. Safety measures in place, bed locked in low position, side rails up x2, call light within reach. Will continue to monitor.
[2018-01-09] VITALS: BP 132/82
--- NOTE | 2018-01-09 | NUR ---
CIWA DEFERRED CIWA deferred at this time due to patient sleeping; to be assessed and scored while patient is awake. Respirations are even and unlabored, RR 14/min. Safety measures in place, call light within reach. Will continue to monitor.
[2018-01-09 04:00] VITALS: BP 129/74
--- NOTE | 2018-01-09 04:00 | NUR ---
CIWA DEFERRED CIWA deferred at this time due to patient sleeping; to be assessed and scored while patient is awake. Respirations are even and unlabored, RR 16/min. Safety measures in place, call light within reach. Will continue to monitor.
--- NOTE | 2018-01-09 07:30 | NUR ---
END OF SHIFT Patient is a 22-year-old male admitted on 01/04/18 for ETOH and benzo withdrawal. Patient is currently on a 5-day Ativan taper, tolerating well. Patients last CIWA was 17, related to extremely high anxiety. Patient received PRN Vistaril, Hydralazine, and Tylenol; noted to be effective. Patient slept for 4 hours, total intake 1,096mL, void x1, stool x0. Patient is on fall and seizure precautions, with most recent seizure reported 1 year ago. Safety measures in place, side rails up x2, bed locked in low position, call light within reach. Will endorse to day shift.
--- NOTE | 2018-01-09 07:40 | NUR ---
START OF SHIFT Received report from material handler 2nd shift nurse. Pt is lying in bed resting and easily arousable. He is a 22 yo male admitted to [facility] on 01/04 for ETOH and BZD withdrawal. He is A&O and ambulatory. Ativan taper ordered for the management of withdrawal symptoms. Pt presents with tremors, facial flushing, anxiety, and anhedonia. He is noted with a flat affect and depressed mood. Pt for 7 hours of restless sleep last night. Safety measures in place.
[2018-01-09 08:00] VITALS: BP 117/77
[2018-01-09] MEDS: FOLIC ACID 1 MG TABLET PO SCH (09:03)
[2018-01-09] MEDS: LORAZEPAM 1 MG TABLET PO SCH ×2 (09:03→20:31)
[2018-01-09] MEDS: MULTIVITAMINS,THERAPEUTIC TABLET PO SCH (09:04)
[2018-01-09] MEDS: PROPRANOLOL HCL 20 MG TABLET PO SCH ×2 (09:04→20:31)
[2018-01-09] MEDS: GABAPENTIN 400 MG CAPSULE PO SCH ×3 (09:04→20:30)
[2018-01-09] MEDS: THIAMINE HCL 100 MG TABLET PO SCH (09:04)
[2018-01-09] MEDS: buPROPion XL 150 MG TAB.SR.24H PO SCH (09:04)
[2018-01-09] MEDS: DESVENLAFAXINE 50 MG PO SCH (09:06)
[2018-01-09] MEDS ORDERED: NICOTINE 14 MG/24HR PATCH TD PRN (11:45)
[2018-01-09 12:00] VITALS: BP 132/75
[2018-01-09] MEDS ORDERED: NICOTINE 21 MG/24HR PATCH TD PRN (12:00)
--- NOTE | 2018-01-09 15:29 | NUR ---
Client was prompted to attend group counseling sessions.
[2018-01-09 16:30] VITALS: BP 124/64
--- NOTE | 2018-01-09 19:22 | NUR ---
END OF SHIFT Report provided to fast food shift lead nurse. Pt is in the rec room with other clients. He is a 22 yo male admitted to [facility] on 01/04 for ETOH and BZD withdrawal. He is A&O and ambulatory. Ativan taper ordered for the management of withdrawal symptoms. Pt was experiencing anhedonia, anxiety, feeling of panic, tremors, and moist skin. He has poor eye contact, is unshaven, and appears disheveled. No PRN medications administered. Pt denied SI/HI. Last CIWA 13. He drank 2000mL. Pt was compliant with group meetings. Safety measures in place.
--- NOTE | 2018-01-09 19:24 | NUR ---
END OF SHIFT Report provided to side laster nurse. Pt is in the rec room with other clients. He is a 26 yo male admitted to [facility] on 01/03 for ETOH, BZD, Heroin withdrawal with a h/o using crack cocaine, subutex and adderall. 5 day phenobarbital and 5 day subutex taper started on 01/04. He is A&O and ambulatory. Pt was experiencing ongoing low back pain and bilateral sciatica pain. Minimal other s/s of withdrawal. Dr. Cody ordered one additional dose of Subutex this afternoon as patient plans on continuing with Subutex maintenance for pain management after discharge. Another dose is scheduled for tonight. PRN Robaxin, Excedrin, Tylenol, Anbesol, and Toradol x2 administered. Last COW10 and CIWA 10. He drank 3100mL. Pt was compliant with group meetings. Safety measures in place.
--- NOTE | 2018-01-09 19:50 | NUR ---
START OF SHIFT NOTE Rcvd report from outgoing nurse, pt is currently in group. Pt. is a 22 y/o male A/O to person, place, time, and purpose. Pt was admitted for medically supervised withdrawal from ETOH and Benzodiazepines. Pt. has been presenting w/ anxiety, depressed and withdrawn mood, flat affect, and body aches. Pt attends group therapy sessions, but has little to no interaction w/ staff or other clients. Pt denies S/I and H/I. Pt rcvd no PRN medications during previous shift. Last CIWA 13 @ 1600. Call light is within reach. Pt will continue to be monitored and needs met.
[2018-01-09 20:00] VITALS: BP 129/79
[2018-01-09] MEDS: NICOTINE POLACRILEX 4 MG GUM-PK OF TEN BC PRN (20:30)
--- NOTE | 2018-01-10 | NUR ---
CIWA DEFERRED AND V/S REFUSED Pt is in bed w/ his eyes closed. Pt's breathing is unlabored and even.
--- NOTE | 2018-01-10 04:00 | NUR ---
CIWA DEFERRED AND V/S REFUSED Pt is in bed w/ his eyes closed. Pt's breathing is unlabored and even.
--- NOTE | 2018-01-10 07:10 | NUR ---
END OF SHIFT NOTE Endorsed pt to oncoming nurse, pt is currently in his room. Pt. is a 22 y/o male A/O to person, place, time, and purpose. Pt was admitted for medically supervised withdrawal from ETOH and Benzodiazepines. Pt. continues to present w/ anxiety, depressed and withdrawn mood, flat affect, and body aches. Pt attends group therapy sessions, but has little to no interaction w/ staff or other clients. Pt rcvd no PRN medications during this shift. Pts fluid intake was 1,700ml and he voided 1 time. Pt slept for 6 hrs. Last WA 11 @ 1999. Call light is within reach.
--- NOTE | 2018-01-10 07:30 | NUR ---
START OF SHIFT Pt is a 22 yr old male, AA&Ox4. Pt was admitted on 01/04/18 for ETOH and Benzo withdrawal and is on 5 day Ativan taper as ordered. Received report from machine sewer nurse.No PRN's were given during the night. Pt slept for 6 hrs. Last CIWA score was 11 during the night. Pt is noted with anxiety m/b difficulty staying still. Skin is intact, warm and moist to touch. Pt is on fall and seizure precautions. Call light is within reach. Will continue to monitor.
[2018-01-10 08:00] VITALS: BP 121/67
[2018-01-10] MEDS ORDERED: LORAZEPAM 1 MG TABLET PO SCH (09:00)
[2018-01-10] MEDS: FOLIC ACID 1 MG TABLET PO SCH (09:19)
[2018-01-10] MEDS: GABAPENTIN 400 MG CAPSULE PO SCH ×3 (09:19→21:29)
[2018-01-10] MEDS: PROPRANOLOL HCL 20 MG TABLET PO SCH ×2 (09:20→21:29)
[2018-01-10] MEDS: THIAMINE HCL 100 MG TABLET PO SCH (09:20)
[2018-01-10] MEDS: MULTIVITAMINS,THERAPEUTIC TABLET PO SCH (09:20)
[2018-01-10] MEDS: buPROPion XL 150 MG TAB.SR.24H PO SCH (09:20)
[2018-01-10] MEDS: DESVENLAFAXINE 50 MG PO SCH (09:22)
[2018-01-10 12:00] VITALS: BP 136/68
[2018-01-10] MEDS: NICOTINE POLACRILEX 4 MG GUM-PK OF TEN BC PRN (15:17)
--- NOTE | 2018-01-10 15:17 | NUR ---
PRN GIVEN Pt requested for Nicotine Gum 4mg PRN. Nicotine gum was provided for smoking cessation
[2018-01-10 16:00] VITALS: BP 134/81
[2018-01-10] MEDS ORDERED: GABA-536 PO (16:43)
[2018-01-10] MEDS ORDERED: PROP20TA19 PO (16:43)
[2018-01-10] MEDS ORDERED: IBUP-1953 PO (16:43)
[2018-01-10] MEDS ORDERED: HYDR-3895 PO (16:43)
[2018-01-10] MEDS ORDERED: DIPH50CA37 PO (16:43)
--- NOTE | 2018-01-10 19:02 | NUR ---
END OF SHIFT Pt is a 22 yr old male, AA&Ox4. Pt was admitted on 01/04/18 for ETOH and Benzo withdrawal and has completed a 5 day Ativan taper as ordered. Pt has been cooperative with medication regimen and plan of care. Pt was observed attending group therapy. Pt c/o anxiety, chills and sweats during the day. Skin is intact warm and moist to touch. Last CIWA score is 7. Pt received Nicotine Gum 4mg PRN for smoking cessation. Pt is to be discharged tomorrow on 01/11/18 to [facility]. Pt is on fall and seizure precautions. Call light is within reach. Endorsed to shift supervisor nurse to continue with care.
[2018-01-10 20:00] VITALS: BP 140/87
--- NOTE | 2018-01-10 20:00 | NUR ---
Start of Shift Patient noted to be anxious regarding his discharge. Discussed with patient plan of care, treatment, meds and coping mechanism. Pt observed to be isolative and melancholic, easily distract and with unkempt hair. Fall, universal, seizure and safety prec in place. Call light within reach. Latest CIWA=7. Will continue to monitor.
[2018-01-11] VITALS: BP 132/79
[2018-01-11 04:00] VITALS: BP 130/82
--- NOTE | 2018-01-11 07:12 | NUR ---
End of Shift Patient asleep on bed but arousable. Patient continues to be isolative and melancholic and with unkempt hair. Room appears messy, with candy wrappers on the floor. Fall, universal, seizure and safety prec in place. Call light within reach. Latest CIWA=6, slept for 7 hours. Endorsed to AM shift nurse for continuity of care.
--- NOTE | 2018-01-11 07:30 | NUR ---
START OF SHIFT NOTE Received report from night nurse, 22 year old male admitted for ETOH withdrawal and he completed his Ativan taper tolerated well. Per endorsement patient did not receive any PRN'S and last CIWA score was 6, slept for 7 hours and set for discharge today. Received patient alert awake oriented x4. Patient presented with anxiety, agitation, restless and excited being discharge. Skin intact warm and dry to touch. All safety measures in place, call light within reach. Will cont to monitor.
[2018-01-11 08:00] VITALS: BP 123/79
[2018-01-11] MEDS: MULTIVITAMINS,THERAPEUTIC TABLET PO SCH (08:06)
[2018-01-11] MEDS: buPROPion XL 150 MG TAB.SR.24H PO SCH (08:06)
[2018-01-11] MEDS: THIAMINE HCL 100 MG TABLET PO SCH (08:06)
[2018-01-11] MEDS: FOLIC ACID 1 MG TABLET PO SCH (08:06)
[2018-01-11] MEDS: GABAPENTIN 400 MG CAPSULE PO SCH (08:06)
[2018-01-11 08:07] VITALS: BP 123/79
[2018-01-11] MEDS: DESVENLAFAXINE 50 MG PO SCH (08:07)
[2018-01-11] MEDS: PROPRANOLOL HCL 20 MG TABLET PO SCH (08:07)
--- NOTE | 2018-01-11 09:38 | NUR ---
DISCHARGE NOTE Patient has been discharged from [facility] Patient is in Stable condition, VS WNL. Denies suicidal and homicidal ideations at this time. All documentation has been completed, paperwork signed and dated. Pt left with all of his belongings, medications and prescriptions. Pt has been discharged from [facility] on 01/11/18 at 0938. has been Notified.
== END 2018-01-11 09:38 | disposition other institution (70) | DRG 895 ==
LOC: SRC 19:38
PROVIDERS: ADMIT Internal Medicine; ATTEND Internal Medicine
PROC: HZ2ZZZZ Detoxification Services for Substance Abuse Treatment (ICD-10-PCS; principal; 2018-01-04)
PROC: HZ31ZZZ Individual Counseling for Substance Abuse Treatment, Behavioral (ICD-10-PCS; 2018-01-05)
PROC: HZ41ZZZ Group Counseling for Substance Abuse Treatment, Behavioral (ICD-10-PCS; 2018-01-07)
DX: F10.232 Alcohol dependence with withdrawal with perceptual disturbance (principal); F13.230 Sedative, hypnotic or anxiolytic dependence with withdrawal, uncomplicated; Y90.1 Blood alcohol level of 20-39 mg/100 ml; Z86.74 Personal history of sudden cardiac arrest; Z91.89 Other specified personal risk factors, not elsewhere classified; Z83.3 Family history of diabetes mellitus; Z82.0 Family history of epilepsy and other diseases of the nervous system; Z81.1 Family history of alcohol abuse and dependence; G47.00 Insomnia, unspecified; F40.01 Agoraphobia with panic disorder; F90.9 Attention-deficit hyperactivity disorder, unspecified type; F17.210 Nicotine dependence, cigarettes, uncomplicated; I15.9 Secondary hypertension, unspecified; F32.9 Major depressive disorder, single episode, unspecified
CPT/HCPCS: 36415; 70030-TC; 80307; 80349; 83735; 85025; 86580; 86592; 86705; 86803; 87340; 87806; G0480; J3411; Q0162; Q0163